=== PATIENT | male | born 1945 | race Caucasian/White ===

== ENCOUNTER → 2016-07-04 | Outpatient (REF) | payer MEDICARE ==
[2016-07-04 11:34] LABS: TRIPLE PHOSPHATE CRYSTALS MODERATE
[2016-07-04 11:42] LABS: ALBUMIN/GLOBULIN RATIO 1.05 (1.00-1.93); ALKALINE PHOSPHATASE 85 U/L (45-117); ALT/SGPT 24 U/L (12-78); ANION GAP 11 MEQ/L (8-16); AST/SGOT 21 U/L (15-37); BILIRUBIN,TOTAL 0.6 MG/DL (0.2-1.0); BLOOD UREA NITROGEN 20 MG/DL (7-18); CALCIUM LEVEL 8.8 MG/DL (8.8-10.2); CARBON DIOXIDE LEVEL 29 MEQ/L (21-32); CHLORIDE LEVEL 100 MEQ/L (98-107); CREATININE FOR GFR 1.21 MG/DL (0.70-1.30); GLOMERULAR FILTRATION RATE > 60.0 (>42); GLUCOSE, FASTING 101 MG/DL (83-110); POTASSIUM SERUM 3.7 MEQ/L (3.5-5.1); SODIUM LEVEL 140 MEQ/L (136-145); TOTAL PROTEIN 7.8 GM/DL (6.4-8.2)
== END ==
LOC: M SFHCCLAY 08:38
PROVIDERS: ATTEND Family Medicine
DX: C61 Malignant neoplasm of prostate (principal); I10 Essential (primary) hypertension; E11.9 Type 2 diabetes mellitus without complications
CPT/HCPCS: 36415; 80053; 81001; 82043; 83036; 84153; G0463

== ENCOUNTER 2016-09-06 10:14 | Day surgery (SDC) | payer MEDICARE ==
[~2016-09-06] VITALS: Ht 172.7 cm; Wt 96.9 kg
[2016-09-06] MEDS ORDERED: ASPI81TA85 PO (10:25)
[2016-09-06] MEDS ORDERED: OXYC1TAB23 (10:25)
[2016-09-06] MEDS ORDERED: LOSA50TA20 (10:25)
[2016-09-06] MEDS ORDERED: NS 500 ML IV ONE (10:45)
[2016-09-06 11:01] LABS: BASO # 0.1 K/mm3 (0.0-0.2); BASO % 1.2 % (0.0-1.0); EOS # 0.1 K/mm3 (0.0-0.50); EOS % 0.9 % (0.0-3.0); LARGE UNSTAINED CELL # 0.1 K/mm3 (0.0-0.4); LARGE UNSTAINED CELL % 1.8 % (0.0-4.0); LYMPH # 1.8 K/mm3 (1.5-4.5); LYMPH % 26.9 % (24.0-44.0); MEAN CORPUSCULAR HEMOGLOBIN 30.6 pg (27.0-33.0); MEAN CORPUSCULAR HGB CONC 34.3 g/dl (32.0-36.5); MONO # 0.4 K/mm3 (0.0-0.8); MONO % 5.4 % (0.0-5.0); NEUTROPHILS # 4.1 K/mm3 (1.8-7.7); NEUTROPHILS % 63.8 % (36.0-66.0); PLATELET COUNT, AUTOMATED 205 k/mm3 (150-450); RED CELL DISTRIBUTION WIDTH 13.7 % (11.5-14.5); WHITE BLOOD COUNT 6.4 K/mm3 (4.0-10.0)
[2016-09-06 11:26] LABS: ALBUMIN 4.4 GM/DL (3.2-5.2); ALBUMIN/GLOBULIN RATIO 1.13 (1.00-1.93); BILIRUBIN,TOTAL 0.5 MG/DL (0.2-1.0); CALCIUM LEVEL 9.5 MG/DL (8.8-10.2); CREATININE FOR GFR 1.27 MG/DL (0.70-1.30); GLOMERULAR FILTRATION RATE 59.3 (>42); POTASSIUM SERUM 3.9 MEQ/L (3.5-5.1); TOTAL PROTEIN 8.3 GM/DL (6.4-8.2)
--- NOTE | 2016-09-06 13:15 | REP ---
CT ABDOMEN AND PELVIS WITHOUT IV CONTRAST: CT abdomen and pelvis performed without oral and IV contrast, with sagittal and coronal reconstruction images performed. There are no comparison studies. Multiple bilateral pulmonary nodules are seen in the visualized lung bases. Largest on the right is in the posterior costophrenic sulcus measuring 1.7 cm in diameter. Largest on the left is 1 cm in diameter. Liver, gallbladder, spleen, adrenals, and pancreas are grossly unremarkable. Intrarenal calculus in the lower pole of the right kidney measures 9 mm in maximum diameter. There is no right hydronephrosis. There appear to be two cysts in the right kidney in the mid to upper aspect, the larger is in the mid aspect posteriorly measuring 1.6 cm in diameter. There is a large staghorn calculus in the left renal pelvis which measures approximately 5.2 cm in length and 3.1 cm in width. There is moderately severe left hydronephrosis. Moderate atherosclerotic calcifications are seen of the abdominal aorta without aneurysm. I see no adenopathy. There is no free air or free fluid. There is no bowel wall thickening. The appendix is normal. Extensive sigmoid and left colonic diverticulosis is noted without evidence of acute diverticulitis. Urinary bladder is unremarkable. There is a small umbilical hernia containing fat. There is spondylolysis of L5 with mild anterior grade 1 spondylolisthesis of L5 on S1. IMPRESSION: Multiple bilateral pulmonary nodules in the visualized lung bases. Recommend followup CT of the chest with and without contrast to further evaluate. Sigmoid diverticulosis and left colonic diverticulosis without evidence of acute diverticulitis. Intrarenal calculus right kidney. Left staghorn calculus in the renal pelvis with moderately severe left hydronephrosis. There is spondylolysis of L5. Signed by Vitor Berumen MD 09/06/2016 07:47 P
[2016-09-06] MEDS ORDERED: ASPI1TAB PO (13:27)
[2016-09-06] MEDS ORDERED: OXYC1TAB23 PO (13:27)
[2016-09-06] MEDS ORDERED: LOSA50TA20 PO (13:27)
[2016-09-06 17:35] VITALS: BP 160/85
[2016-09-06 20:13] VITALS: BP 163/97
--- NOTE | 2016-09-06 20:14 | SMCUROLCON ---
Urology Consultation General Date of Consultation 09/06/16 Reason For Consultation This patient is seen for Renal Calculi. History of Present Illness This is a 71 y/o M w/ a PMH significant for prostate cancer (Nicci 5 per pt diagnosed 6 years ago), nephrolithiasis (has passed several stones previously), and HTN, who presented to the ER today w/ gross hematuria. This started today. He denies dysuria. He denies difficulty emptying his bladder. He has noted right flank pain but denies abdominal pain. A CT A/P was obtained in the ED and was notable for a 5cm staghorn left kidney stone w/ moderate hydronephrosis and an 8mm nonobstructing right renal stone w/ no hydronephrosis. His UA was notable for several WBC. He denies fevers or chills. He denies nausea or vomiting. He has not had any surgery for kidney stones previously. He has been on active surveillance for prostate cancer, noting that his last PSA was 8 a few months ago and this was done after having a prostate exam. Past Medical History Medical History see HPI Surgical Hstory prostate biopsy Medications Current Medications Current Medications Home Med (Med Rec Complete!) ASDIRECTED XX ; Start 09/06/16 at 13:30; Stop at 13:39; Status DC Allergies Allergies: Coded Allergies: Ezetimibe (Unverified Allergy, Mild, 08/07/12) Fluvastatin (Unverified Allergy, Mild, RENAL PROBLEMS, 08/07/12) Penicillins (Unverified Allergy, Mild, RASH, 08/07/12) Penicillins Cross Reactors (Unverified Allergy, Mild, RASH, 08/07/12) Pravastatin (Unverified Allergy, Mild, 08/07/12) Rosuvastatin (Unverified Allergy, Mild, BURNING/REDNESS, 08/07/12) Review of Systems General: Reports: Normal Appetite, Denies: Fatigue, Malaise Constitutional: Denies: Fever, Chills, Sweats, Weakness Skin: Denies: Rash, Lesions, Breakdown, Nail Changes Pulmonary: Denies: Dyspnea, Cough Cardiovascular: Denies Chest Pain, Denies Palpitations Gastrointestinal: Denies: Nausea, Vomiting, Abdominal Pain Genitourinary: Reports: Hematuria, Denies: Dysuria, Frequency, Incontinence Musculoskeletal: Reports: Back Pain (notes right flank pain but denies left flank pain) Psych: Reports: Mood Normal Physical Examination General Exam: Alert, Cooperative, No Acute Distress ENT EXAM: Atraumatic Chest Exam: Clear to auscultation Heart Exam: Rate Normal, Regular Rhythm Abdomen Exam: Soft, No: Tenderness, Mass Skin Exam: Nl turgor and temperature Neuro Exam: Normal Speech Psych Exam: Mental status NL, Mood NL Vital Signs/I&O Vital Signs Date Time Temp Pulse Resp B/P (MAP) Pulse Ox O2 Delivery O2 Flow Rate FiO2 09/06/16 17:35 99.0 71 18 160/85 (110) 97 Room Air Laboratory Data 24H Labs Laboratory Tests 2 09/06/16 10:48: White Blood Count 6.4, Red Blood Count 5.25, Hemoglobin 16.1, Hematocrit 46.8, Mean Corpuscular Volume 89.0, Mean Corpuscular Hemoglobin 30.6, Mean Corpuscular Hemoglobin Concent 34.3, Red Cell Distribution Width 13.7, Platelet Count 205, Neutrophils (%) (Auto) 63.8, Lymphocytes (%) (Auto) 26.9, Monocytes ( %) (Auto) 5.4H, Eosinophils (%) (Auto) 0.9, Basophils (%) (Auto) 1.2H, Neutrophils # (Auto) 4.1, Lymphocytes # (Auto) 1.8, Monocytes # (Auto) 0.4, Eosinophils # (Auto) 0.1, Basophils # (Auto) 0.1, Large Unclassified Cells % 1.8 , Large Unclassified Cells # 0.1, Urine Appearance HAZY, Urine Color REDH, Urine pH 8.0, Urine Specific [place] 1.003, Urine Protein 2+H, Urine Glucose (UA ) NEGATIVE, Urine Ketones NEGATIVE, Urine Urobilinogen 0.2, Urine Bilirubin NEGATIVE, Urine Leukocyte Esterase 3+H, Urine Blood 3+H, Urine Nitrite NEGATIVE , Urine WBC (Auto) 70H, Urine RBC (Auto) 22H, Urine Hyaline Casts (Auto) 0, Urine Bacteria (Auto) 2+H, Urine Squamous Epithelial Cells 1, Urine Sperm (Auto ) , Anion Gap 7L, Glomerular Filtration Rate 59.3, Lactic Acid Level 1.8, Blood Urea Nitrogen 16, Creatinine 1.27, Sodium Level 140, Potassium Level 3.9, Chloride Level 102, Carbon Dioxide Level 31, Calcium Level 9.5, Aspartate Amino Transf (AST/SGOT) 21, Alanine Aminotransferase (ALT/SGPT) 25, Alkaline Phosphatase 95, Total Bilirubin 0.5, Total Protein 8.3H, Albumin 4.4, Albumin/ Globulin Ratio 1.13 CBC/BMP Laboratory Tests 09/06/16 10:48 Red Blood Count 5.25, Mean Corpuscular Volume 89.0, Mean Corpuscular Hemoglobin 30.6, Mean Corpuscular Hemoglobin Concent 34.3, Red Cell Distribution Width 13.7 , Neutrophils (%) (Auto) 63.8, Lymphocytes (%) (Auto) 26.9, Monocytes (%) (Auto ) 5.4 H, Eosinophils (%) (Auto) 0.9, Basophils (%) (Auto) 1.2 H, Neutrophils # ( Auto) 4.1, Lymphocytes # (Auto) 1.8, Monocytes # (Auto) 0.4, Eosinophils # (Auto ) 0.1, Basophils # (Auto) 0.1, Calcium Level 9.5, Aspartate Amino Transf (AST/ SGOT) 21, Alanine Aminotransferase (ALT/SGPT) 25, Alkaline Phosphatase 95, Total Bilirubin 0.5, Total Protein 8.3 H, Albumin 4.4 Microbiology Microbiology 09/06/16 Blood Culture, Received Pending 09/06/16 Urine Culture, Received Pending Assessment This is a 71 M w/ a 5cm left staghorn stone w/ moderate hydro and a likely UTI based on UA. I recommended that we take him to the OR for cystoscopy and left ureteral stent placement today to decompress his kidney. Plan - after a discussion of the risks and benefits, informed consent was signed for cystoscopy, left ureteral stent placement - he should be able to go home after surgery on antibiotics for several days and will ultimately need follow up for a left percutaneous nephrolithotomy - 500mg levaquin IV airways control specialist to OR - NPO until surgery MICHAEL DODSON MD September 06, 2016 20:14
[2016-09-06] MEDS ORDERED: LIDOCAINE 2% 5ML JELLY UROJET As Ordered ONE (20:35)
[2016-09-06] MEDS ORDERED: CONRAY-60 60% 50ML VIAL (Q9961) As Ordered ONE (20:35)
[2016-09-06] MEDS ORDERED: LevoFLOXacin(LEVAQUIN)500 MG/100 ML BAG (J1956) As Ordered ONE (20:47)
[2016-09-06] MEDS ORDERED: LevoFLOXacin IV 500 MG in APPROPRIATE DILUENT 1 EA IV ONE (21:00)
[2016-09-06] MEDS ORDERED: LIDOCAINE 2% INJ 100 MG/5 ML SDV (FOR ANES.) As Ordered ONE (21:06)
[2016-09-06] MEDS ORDERED: ONDANSETRON 4MG/2ML VIAL (J2405) As Ordered ONE (21:06)
[2016-09-06] MEDS ORDERED: MIDAZOLAM INJ 2 MG/2 ML VIAL (J2250) As Ordered ONE (21:06)
[2016-09-06] MEDS ORDERED: fentaNYL 250 MCG/5 ML INJECTION (J3010) As Ordered ONE (21:06)
[2016-09-06] MEDS ORDERED: PROPOFOL 200 MG/20 ML VIAL As Ordered ONE ×2 (21:06→21:36)
[2016-09-06] MEDS ORDERED: SEVOFLURANE INHAL SOLN 250 ML BTL As Ordered ONE (21:13)
[2016-09-06] MEDS ORDERED: ACETAMINOPHEN TAB 650MG DOSE (2X325MG) PO PRN (22:30)
[2016-09-06] MEDS ORDERED: PERCOCET 5MG/325MG TAB PO PRN (22:30)
[2016-09-06] MEDS ORDERED: LR 1,000 ML IV SCH (22:30)
[2016-09-06] MEDS ORDERED: METOCLOPRAMIDE INJ 10MG/2ML VIAL (J2765) IV PRN (22:30)
[2016-09-06] MEDS ORDERED: fentaNYL 100 MCG/2 ML INJECTION (J3010) IV PRN (22:30)
[2016-09-06] MEDS ORDERED: ONDANSETRON 4MG/2ML VIAL (J2405) IV PRN (22:30)
[2016-09-06 23:05] VITALS: BP 138/86
[2016-09-06 23:35] VITALS: BP 144/88
[2016-09-07 00:02] VITALS: BP 140/82
--- NOTE | 2016-09-07 08:37 | RO ---
DATE OF PROCEDURE: 09/06/2016 PREPROCEDURE DIAGNOSES: Obstructing left kidney stone and gross hematuria. POSTPROCEDURE DIAGNOSES: Obstructing left kidney stone and gross hematuria. PROCEDURE: Cystoscopy, left ureteroscopy, left retrograde pyelogram with intraoperative interpretation of images, left ureteral stent placement, fulguration of prostatic urethral bleeding. SURGEON: Alex Awan MD MANAGER MARKET: None. ANESTHESIA: MAC. OPERATIVE INDICATIONS: This is a 71-year-old male who presented to the emergency room earlier today with gross hematuria. While in the emergency room, a CAT scan was obtained and was notable for an obstructing 5 cm left Staghorn calculus. His urinalysis was notable for 70 white blood cells, greatly concerning for a possible urinary tract infection. Given the combination of possible urinary tract infection and obstructing stone, the recommendation was to bring him to the operating room today for a left stent placement to decompress the left kidney. DESCRIPTION OF PROCEDURE: The patient was brought to the operating room where MAC anesthesia was administered. Prophylactic antibiotics were infused. He was then placed in the dorsal lithotomy position and prepped and draped in the usual sterile fashion. A rigid cystoscope was inserted into the ureteral meatus and advanced to the bladder. Of note, once in the bladder it was very hard to see anything as he is having a moderate amount of hematuria. The bleeding appeared to be coming from his prostate, which appeared enlarged and very vascular. At this point, I then fulgurated and cauterized the prostatic urethra using a Bugbee electrode and kept doing this until the bleeding stopped. I then examined the bladder thoroughly and I did not see any abnormal masses within the bladder. I then located the left ureteral orifice and it was orthotopic. I tried cannulating the ureteral orifice with a wire and it would not go into the ureteral orifice and appeared to be somewhat stenotic. I therefore went into the ureteral orifice with a short, semi-rigid ureteroscope. I was ultimately able to get into the ureteral orifice. I then advanced the wire up to the left collecting system. After the wire was advanced up in the left collecting system , an open ended ureteral catheter was advanced over the wire up into the left kidney. A retrograde pyelogram was performed and was notable for moderate hydronephrosis. There was no extravasation. At this point, the wire was then advanced back up into the open ended ureteral catheter and the open ended ureteral catheter was then removed leaving the wire in place. I then utilized the wire to advance a #7-Japanese x 22-32 cm JJ ureteral stent up into the left collecting system. The wire was then removed and there were adequate curls of the stent in the left kidney and in the bladder. The bladder was then emptied of all fluid and this marked conclusion of the procedure. The patient was then taken out of the dorsal lithotomy position, awakened from anesthesia and transported to the recovery room in stable condition. ESTIMATED BLOOD LOSS: 10 mL. COMPLICATIONS: None. SPECIMENS: None. PLAN: The patient is going to be discharged home tonight. He will followup in the clinic over the next week or two to discuss a percutaneous nephrolithotomy to treat his left Staghorn stone. Of note, he also has a 9 mm right sided kidney stone and that will be treated at some point in the future as well. SRI
--- NOTE | 2016-09-07 09:06 | REP ---
C-ARM VIEWS DURING LEFT URETERAL STENT PLACEMENT: Four C-arm views are performed. A wire was placed into the left ureter. A small amount of contrast is seen in the left pelvicaliceal system. A left ureteral stent is visualized on the final image with the proximal end coiled in the region of the left renal collecting system and the distal end coiled in the region of the urinary bladder. 32 seconds fluoroscopy time utilized. Signed by Vitor Berumen MD 09/07/2016 04:43 P
== END 2016-09-07 00:05 | disposition home or self-care (01) ==
LOC: M ED 10:44 → M SDC 12:45 → M ED INP 12:45 → UNDOADMIN 12:45 → M MS5PR 17:35 → M SDC 09-07 00:05
PROVIDERS: ATTEND Urology
DX: N20.0 Calculus of kidney (principal); R31.0 Gross hematuria; I20.9 Angina pectoris, unspecified; I10 Essential (primary) hypertension; E66.9 Obesity, unspecified; R91.8 Other nonspecific abnormal finding of lung field; C61 Malignant neoplasm of prostate; Z88.0 Allergy status to penicillin; Z88.8 Allergy status to other drugs, medicaments and biological substances; Z79.899 Other long term (current) drug therapy
CPT/HCPCS: 52214; 52332; 74176; 74420; 80053; 81001; 83605; 85025; 87040; 87086; 99284; C1726; C1758; C2617; J1956; J2250; J2405; J3010; Q9961

== ENCOUNTER → 2016-09-23 | Outpatient (CLI) | payer MEDICARE ==
[~2016-09-23] MED LIST: ASPI1TAB PO; ASPI81TA85 PO; FLOM5CAP PO; ISOVUE-370 76% 100ML VIAL (Q9967) As Ordered ONE; LOSA50TA20; LOSA50TA20 PO; OXYC1TAB23; OXYC1TAB23 PO
--- NOTE | 2016-09-23 12:33 | REP ---
Clinical: Pulmonary nodule. Technique: Axial contrast enhanced images from the thoracic inlet to the upper abdomen using 100 ml Isovue 370 intravenous contrast material with multiplanar re-formations. Comparison: CT of the abdomen dated 09/06/2016. Note: Although the patient gives no history of prior carcinoma, a previous bone scan and pelvic CT dated 02/13/2007 give clinical indication as prostate cancer. Findings: Innumerable bilateral pulmonary nodules and mass lesions are appreciated measuring up to 2.9 cm in the right middle lobe and 2.6 cm in the right upper lobe compatible with pulmonary metastatic disease. No significant axillary, hilar, or mediastinal adenopathy is appreciated. No pleural effusion/reaction. Tracheobronchial tree is patent. Mediastinum demonstrates atherosclerotic changes to the thoracic aorta and coronary arteries along with mild cardiomegaly. No pericardial effusion. Surrounding musculoskeletal structures demonstrate age-related degenerative changes. However, very subtle vague sclerotic changes may reflect associated bony metastatic disease given the patient's history of prostate cancer. Limited evaluation of the upper abdomen demonstrates staghorn calculus in the left kidney with left ureteral stent and associated severe hydronephrosis and renal cortical thinning. The right kidney demonstrates few cysts as well as 9 mm nonobstructing calculus and no hydronephrosis. Bilateral adrenal glands are normal. Impression: 1. Innumerable bilateral pulmonary mass lesions compatible with metastatic disease measuring up to 2.9 cm in the right middle lobe and 2.6 cm in the right upper lobe. No significant adenopathy noted. Mild cardiomegaly identified. 2. Limited evaluation of the upper abdomen demonstrates renal changes including left staghorn calculus, left ureteral stent, and hydronephrosis as well as nonobstructing 9 mm right renal calculus. 3. Cannot exclude very subtle osseous sclerotic metastatic foci. Signed by Vidal Smith MD 09/23/2016 12:24 P
== END ==
LOC: M RAD 10:57
PROVIDERS: ATTEND Nurse Practitioner Family
DX: Z01.818 Encounter for other preprocedural examination (principal); R91.1 Solitary pulmonary nodule; N20.0 Calculus of kidney; Z96.89 Presence of other specified functional implants
CPT/HCPCS: 71260; Q9967

== ENCOUNTER 2016-09-25 07:44 | Inpatient (IN) | payer MEDICARE ==
[~2016-09-25] VITALS: Ht 172.7 cm; Wt 98.6 kg
[~2016-09-25 07:44] MED LIST changes: -FLOM5CAP PO; -ISOVUE-370 76% 100ML VIAL (Q9967) As Ordered ONE
[2016-09-25] MEDS ORDERED: ONDANSETRON 4MG/2ML VIAL (J2405) IV ONE ×2 (08:00→09:15)
[2016-09-25] MEDS ORDERED: FLOM5CAP PO (08:03)
[2016-09-25 08:34] LABS: BASO # 0.1 K/mm3 (0.0-0.2); BASO % 0.7 % (0.0-1.0); EOS # 0.1 K/mm3 (0.0-0.50); EOS % 0.8 % (0.0-3.0); LARGE UNSTAINED CELL # 0.1 K/mm3 (0.0-0.4); LARGE UNSTAINED CELL % 0.7 % (0.0-4.0); LYMPH # 1.1 K/mm3 (1.5-4.5); LYMPH % 9.8 % (24.0-44.0); MEAN CORPUSCULAR HEMOGLOBIN 29.6 pg (27.0-33.0); MEAN CORPUSCULAR HGB CONC 33.3 g/dl (32.0-36.5); MEAN CORPUSCULAR VOLUME 89.1 fl (80.0-96.0); MONO # 0.4 K/mm3 (0.0-0.8); NEUTROPHILS # 8.9 K/mm3 (1.8-7.7); PLATELET COUNT, AUTOMATED 226 k/mm3 (150-450); RED CELL DISTRIBUTION WIDTH 13.4 % (11.5-14.5); WHITE BLOOD COUNT 10.5 K/mm3 (4.0-10.0)
[2016-09-25 08:38] LABS: CALCIUM LEVEL 8.6 MG/DL (8.8-10.2); CREATININE FOR GFR 1.37 MG/DL (0.70-1.30); GLOMERULAR FILTRATION RATE 54.4 (>42); POTASSIUM SERUM 3.7 MEQ/L (3.5-5.1)
[2016-09-25] MEDS ORDERED: MORPHINE 2 MG/ML 1ML SYRINGE IV ONE (09:15)
--- NOTE | 2016-09-25 09:50 | REP ---
Clinical: Hematuria. Comparison: 09/06/2016. Findings: A large staghorn calculus is again identified in the left renal pelvis and a subsequently placed ureteral stent extends from the kidney to the ureter. The left kidney demonstrates grade III hydroureteronephrosis which is mildly improved compared to prior examination. There is evidence for hemorrhagic debris within the left renal pelvis as well as filling the bladder. The right kidney demonstrates 9 mm nonobstructing calculus and 1.5 cm hypodensity likely representing cyst. Liver, spleen, pancreas, gallbladder, and bilateral adrenal glands are normal for noncontrast evaluation. The enteric system is without obstruction or acute inflammatory process. Colonic diverticulosis noted without acute diverticulitis. Pelvis again demonstrates hemorrhagic debris filling the bladder and Ivy catheter in satisfactory position. Prostate gland is enlarged with mass effect on the base of the bladder. Fat containing left inguinal hernia noted. No ascites. No free air. No obvious adenopathy. Atherosclerotic changes of the aorta and vasculature noted without aneurysm. 2 cm fat containing periumbilical hernia identified. Surrounding musculoskeletal structures demonstrate age-related degenerative changes. Lung bases demonstrate noncalcified pulmonary nodules measuring up to 12 mm and correlation with recent chest CT is required. Impression: 1. Hemorrhagic debris extends from the left renal pelvis into the bladder. Previously identified staghorn calculus in the left kidney is unchanged along with grade III hydronephrosis which is minimally improved secondary to ureteral stent placement. 2. 9 mm nonobstructing calculus in the right kidney along with 1.5 cm hypodensity likely representing cyst. 3. Colonic diverticulosis without acute diverticulitis. 4. Further chronic changes as described above. Signed by Vidal Smith MD 09/25/2016 09:41 A
[2016-09-25] MEDS: NS 1,000 ML IV SCH ×2 (10:38→20:30)
[2016-09-25] MEDS ORDERED: PERCOCET 5MG/325MG TAB PO ONE ×2 (11:30→16:45)
[2016-09-25] MEDS ORDERED: ACETAMINOPHEN TAB 650MG DOSE (2X325MG) PO PRN (17:15)
[2016-09-25] MEDS ORDERED: ONDANSETRON 4MG/2ML VIAL (J2405) IV PRN (17:15)
[2016-09-25] MEDS: PERCOCET 5MG/325MG TAB PO PRN (20:44)
[2016-09-25 20:45] LABS: MAGNESIUM LEVEL 1.9 MG/DL (1.8-2.4)
[2016-09-25 20:54] VITALS: BP 185/86
[2016-09-25 21:27] LABS: INR 1.05
[2016-09-26] MEDS: PERCOCET 5MG/325MG TAB PO PRN ×3 (00:37→11:03)
--- NOTE | 2016-09-26 05:42 | CR ---
DATE OF CONSULTATION: 09/25/2016 CHIEF COMPLAINT: Gross hematuria and clot retention. HISTORY OF PRESENT ILLNESS: This is a very pleasant 71-year-old gentleman who is under the care of Dr. Awan who is following him for a left renal stone that he has been bleeding from and has a stent place. Also a history of prostate cancer that had been quiescent but is in the process of being worked up. Most recent prostate specific antigen (PSA) was eight, but that was up from one. He came in specifically tonight because of clot retention. He has been bleeding on-and-off for some time. It was noted that Dr. Awan required fulguration of his prostate, but the patient said he was told that the bleeding is coming from his kidney. A three-way catheter was placed and he was irrigated with nine bags of fluid, but it still would not clear, so the decision was made to admit him on continuous bladder irrigation (CBI) and urology was consulted. PAST MEDICAL HISTORY: Significant for a history of prostate cancer, he said diagnosed 10 years ago. No treatment, benign prostatic hypertrophy (BPH), staghorn calculus on the left, hydronephrosis, recurrent gross hematuria status post stent, newly-diagnosed pulmonary nodules of uncertain etiology. PAST SURGICAL HISTORY: Includes ureteral stent. No other surgeries in his past. ALLERGIES: 1. ATENOLOL. 2. EZETIMIBE. 3. FLUVASTATIN. 4. PENICILLINS. 5. PENICILLIN CROSS REACTORS. 6. PRAVASTATIN. 7. ROSUVASTATIN. MEDICATIONS: Tylenol, Percocet, Zofran, losartan and Flomax. SOCIAL HISTORY: He denies ever having any tobacco. He only rarely drinks an alcoholic beverage and denies any drugs. FAMILY HISTORY: Noncontributory. REVIEW OF SYSTEMS: Positive for the gross hematuria, clots, and clot urinary retention. He denies any chest pain or shortness of breath, any hematochezia or hemoptysis, bloody emesis, headache, seizure, stroke, numbness or tingling of the extremities, nausea, vomiting, diarrhea, constipation, fever or chills. PHYSICAL EXAMINATION: GENERAL: On exam, he is a very pleasant 71-year-old gentleman who is well developed, well nourished. He is in no acute distress. He is alert and oriented. HEENT: Normocephalic, atraumatic. NECK: Supple without adenopathy or thyromegaly. CARDIOVASCULAR: Regular rate and rhythm without rubs, gallops or murmurs. RESPIRATORY: Lung musa are clear to auscultation bilaterally. ABDOMEN: Protuberant but soft. No evidence of hepatosplenomegaly, palpable masses or costovertebral angle tenderness. EXTREMITIES: Show some mild 1+ edema. No clubbing was appreciated. GENITOURINARY (): Exam reveals normal male genitalia and bilateral descended testicles with indwelling Ivy catheter, initially with very dark purple urine in the tubing while CBI was off. Cleared to a pale pink after CBI was turned on. LABORATORY DATA: White blood cell count is 10.5, hemoglobin and hematocrit are 14.2 and 42.6. Creatinine is 1.37. IMAGING: A CT of the abdomen and pelvis has been performed. Images and read are not available. He had a chest CT yesterday which showed multiple pulmonary nodules. Hospitalist is going to investigate these. ASSESSMENT: 1. Gross hematuria with clot retention. 2. Left staghorn calculus status post stent. 3. Prostate cancer. 4. Multiple pulmonary nodules. PLAN: He has been admitted by the hospitalist primarily to help manage his medical conditions while we manage the hematuria. He will need to stay in the hospital until we can get him off the CBI. This may be as soon as tomorrow. However, he is going to need further workup for both the staghorn calculus and his prostate from a urologic standpoint, which Dr. Awan is already in the process of doing, but will also need some evaluation for the pulmonary nodules as well. Dr. Awan or Dr. Lowry will see him in the morning. Thank you very much for involving me in the care of this kind patient.
[2016-09-26 06:00] VITALS: BP 187/87
[2016-09-26 06:43] LABS: BASO % 0.5 % (0.0-1.0); EOS # 0.2 K/mm3 (0.0-0.50); EOS % 2.3 % (0.0-3.0); LARGE UNSTAINED CELL # 0.1 K/mm3 (0.0-0.4); LYMPH # 1.5 K/mm3 (1.5-4.5); LYMPH % 14.3 % (24.0-44.0); MEAN CORPUSCULAR HEMOGLOBIN 29.5 pg (27.0-33.0); MEAN CORPUSCULAR HGB CONC 32.9 g/dl (32.0-36.5); MEAN CORPUSCULAR VOLUME 89.8 fl (80.0-96.0); MONO # 0.8 K/mm3 (0.0-0.8); MONO % 7.8 % (0.0-5.0); NEUTROPHILS # 7.4 K/mm3 (1.8-7.7); NEUTROPHILS % 74.1 % (36.0-66.0); PLATELET COUNT, AUTOMATED 197 k/mm3 (150-450); RED CELL DISTRIBUTION WIDTH 13.5 % (11.5-14.5); WHITE BLOOD COUNT 9.9 K/mm3 (4.0-10.0)
[2016-09-26 07:10] LABS: ALBUMIN/GLOBULIN RATIO 0.83 (1.00-1.93); ALKALINE PHOSPHATASE 75 U/L (45-117); ALT/SGPT 18 U/L (12-78); ANION GAP 3 MEQ/L (8-16); AST/SGOT 17 U/L (15-37); BILIRUBIN,TOTAL 0.6 MG/DL (0.2-1.0); BLOOD UREA NITROGEN 15 MG/DL (7-18); CALCIUM LEVEL 8.1 MG/DL (8.8-10.2); CARBON DIOXIDE LEVEL 32 MEQ/L (21-32); CHLORIDE LEVEL 103 MEQ/L (98-107); CREATININE FOR GFR 1.12 MG/DL (0.70-1.30); GLOMERULAR FILTRATION RATE > 60.0 (>42); GLUCOSE, FASTING 114 MG/DL (83-110); POTASSIUM SERUM 4.6 MEQ/L (3.5-5.1); SODIUM LEVEL 138 MEQ/L (136-145); TOTAL PROTEIN 6.6 GM/DL (6.4-8.2)
--- NOTE | 2016-09-26 10:26 | IPNPDOC ---
Subjective Date Seen The patient was seen on 09/26/16. Subjective Chief Complaint/HPI The patient is a 71-year-old male admitted with a reason for visit of Hematuria , Gross. Events since last encounter Pt feels the bleeding has slowed since admission, but he cont to have dark red urine. C/o kidney pain on both sides of his back. We talked about his CT chest results today and obtaining a bx, he initially refused as he wants to figure out why he has is bleeding but the more we talked about it he agreed to proceed with bx during admission. General: Denies: Fatigue Constitutional: Denies: Chills, Fever ENT: Denies: Head Aches Pulmonary: Denies: Dyspnea, Cough Cardiovascular: Denies: Chest Pain, Palpitations Gastrointestinal: Denies: Nausea, Vomiting, Diarrhea Genitourinary: Reports: Hematuria Neurological: Reports: Weakness Psych: Reports: Mood Normal Objective Physical Examination General Exam: Positive: Alert, No Acute Distress ENT Exam: Positive: Mucous membr. moist/pink Neck Exam: Positive: Supple Chest Exam: Positive: Clear to auscultation, Normal air movement Heart Exam: Positive: Rate Normal, Normal S1, Normal S2 Abdomen Exam: Positive: Normal bowel sounds, Soft, Negative: Tenderness Extremity Exam: Negative: Edema Psych Exam: Positive: Mental status NL, Anxiety, Oriented x 3 Assessment /Plan Problems (1) Hematuria, gross Status: Acute Response to Treatment: Uncontrolled Discussed With: Director Gift, Patient Problem Specific Plan: Consult Specialist, Monitor Clinically, Repeat Labs Problem Text: Pt has been seen by Uro, Dr Duncan, she plans for Dr Awan to see the pt this morning. He cont to have significant hematuria, with a decline of 3 grams in his Hgb since 09/06/16 (1 gram since admission). Uro had been planning for PCNL as outpt with pre-op testing started. + 1.5 cm L renal pelvis staghorn calculus, + stent for hydronephrosis, 9 mm non obstruction L stone, hemorrhagic debris noted on CT A & P (2) Pulmonary nodules/lesions, multiple Status: Acute Response to Treatment: Stable Discussed With: Patient Problem Specific Plan: Consult Specialist, Monitor Clinically Problem Text: I had a lengthy discussion with the pt on his findings. He agreed to IR consult for biopsy. He is aware that this might not happen today and that the results will take 3-5 days to return. He continues to be quite shocked with the new of mtp pulm nodules with 2 that are nearly 3 cm. (3) Hydronephrosis Status: Acute Problem Text: see above. (4) Ureterolithiasis Status: Acute Problem Text: See above. (5) Staghorn calculus Status: Acute Problem Text: See above. (6) Prostate cancer Status: Chronic Response to Treatment: Stable Problem Specific Plan: Monitor Clinically Problem Text: Pt follows with Uro, his PSA has increased from 1 to 8 - 12.9 per review of his records. He has recently established with Uro in [place] who have begun to follow this. Plan/VTE VTE Prophylaxis Ordered?: No VTE Exclusion Pharmacological: Active Bleeding Plan/Urinary Catheter Reason for insertion/continuin: Other-document below Plan Attending note: I saw and evaluated the patient, and agree with the plan of care as discussed and documented by Isrrael Tinsley. We will discuss CT findings with Dr. Woo, to determine if patient may benefit from bronchoscopy for evaluation of lung lesions. Ankit Joiner MD VS, I&O, 24H, [facility] Vital Signs/I&O Vital Signs Date Time Temp Pulse Resp B/P (MAP) Pulse Ox O2 Delivery O2 Flow Rate FiO2 09/26/16 06:18 18 09/26/16 06:00 99.0 63 187/87 (120) 97 Room Air I&O- Last 24 Hours up to 6 AM 09/26/16 06:00 Intake Total 1480 ml Output Total 3045 ml Balance -1565 ml Laboratory Data 24H LABS Laboratory Tests 2 09/25/16 21:07: Prothrombin Time 13.8, Prothromb Time International Ratio 1.05, Activated Partial Thromboplast Time 25.8L 09/26/16 06:30: White Blood Count 9.9, Red Blood Count 4.44, Hemoglobin 13.1L, Hematocrit 39.9L , Mean Corpuscular Volume 89.8, Mean Corpuscular Hemoglobin 29.5, Mean Corpuscular Hemoglobin Concent 32.9, Red Cell Distribution Width 13.5, Platelet Count 197, Neutrophils (%) (Auto) 74.1H, Lymphocytes (%) (Auto) 14.3L, Monocytes (%) (Auto) 7.8H, Eosinophils (%) (Auto) 2.3, Basophils (%) (Auto) 0.5 , Neutrophils # (Auto) 7.4, Lymphocytes # (Auto) 1.5, Monocytes # (Auto) 0.8, Eosinophils # (Auto) 0.2, Basophils # (Auto) 0.0, Large Unclassified Cells % 1.0 , Large Unclassified Cells # 0.1, Anion Gap 3L, Glomerular Filtration Rate > 60.0, Blood Urea Nitrogen 15, Creatinine 1.12, Sodium Level 138, Potassium Level 4.6#, Chloride Level 103, Carbon Dioxide Level 32, Calcium Level 8.1L, Aspartate Amino Transf (AST/SGOT) 17, Alanine Aminotransferase (ALT/SGPT) 18, Alkaline Phosphatase 75, Total Bilirubin 0.6, Total Protein 6.6, Albumin 3.0L, Albumin/Globulin Ratio 0.83L CBC/BMP Laboratory Tests 09/26/16 06:30 Red Blood Count 4.44, Mean Corpuscular Volume 89.8, Mean Corpuscular Hemoglobin 29.5, Mean Corpuscular Hemoglobin Concent 32.9, Red Cell Distribution Width 13.5 , Neutrophils (%) (Auto) 74.1 H, Lymphocytes (%) (Auto) 14.3 L, Monocytes (%) ( Auto) 7.8 H, Eosinophils (%) (Auto) 2.3, Basophils (%) (Auto) 0.5, Neutrophils # (Auto) 7.4, Lymphocytes # (Auto) 1.5, Monocytes # (Auto) 0.8, Eosinophils # ( Auto) 0.2, Basophils # (Auto) 0.0, Calcium Level 8.1 L, Aspartate Amino Transf ( AST/SGOT) 17, Alanine Aminotransferase (ALT/SGPT) 18, Alkaline Phosphatase 75, Total Bilirubin 0.6, Total Protein 6.6, Albumin 3.0 L Microbiology Microbiology 09/25/16 Blood Culture, Received Pending 09/25/16 Urine Culture, Received Pending ISRRAEL TINSLEY PA-C September 26, 2016 10:26 ANKIT JOINER MD September 26, 2016 17:15
[2016-09-26] MEDS: NS 1,000 ML IV SCH ×2 (11:01→16:30)
[2016-09-26] MEDS: TAMSULOSIN 0.4 MG CAP PO SCH (12:12)
[2016-09-26] MEDS: LOSARTAN 50 MG TAB PO SCH (12:12)
[2016-09-26 14:12] VITALS: BP 154/85
[2016-09-26 22:00] VITALS: BP 171/81
[2016-09-26] MEDS ORDERED: VANCOMYCIN HCL 1,000 MG, VIAL MATE ADAPTER 1 EACH in D5W 250 ML IV ONE (23:00)
--- NOTE | 2016-09-26 23:05 | PHACANCOPD ---
PHARMACY VANCOMYCIN DOSING Pt Demographics Demographics Patient Age:71 , Weight:98.500 , Gender: male Adjusted Body Weight Date: 09/26/16, Adjusted Body Weight: Kg Events Past 24 Hours Events Past 24 Hours: NO: Dialysis, Diuretic Therapy, Change in CrCl, Fever, Elevation in WBC, Pending Diagnostics, Pending Procedures, Other Vancomycin Vancomycin Target Ranges: 10-20 mcg/ml Vancomycin Load Y/N: Yes Load Dose Date Time Vancomycin Load Dose: 2000MG Date: 09-27 Time: 0000 Vancomycin Dose Date: 09/26/16. Current Vancomycin Dose: [1000MG Q8H] Intermittent Dosing?: No Labs Labs Item Value Date Time White Blood Count 9.9 K/mm3 09/26/16 0630 Creatinine 1.12 MG/DL 09/26/16 0630 Creatinine 1.37 MG/DL H 09/25/16 0815 Vital Signs Label Value Date Time Patient Temperature 100.2 degrees F 09/26/16 2200 Temperature Source Temporal 09/26/16 2200 Micro Microbiology 09/26/16 Blood Culture, Received Pending 09/26/16 Blood Culture, Received Pending 09/25/16 Blood Culture - Preliminary, Resulted 09/25/16 Urine Culture, Received Pending Creatinine Clearance Date:09/26/16. Creatinine Clearance: [58]. Pending Labs Trough 05-23 @2300 Assessment and Plan Maintaining Current Dose?: Yes Reason for dose change: No Dose Change Pharmacist Note Pharmacist Note Date: 09/26/16. Pharmacist note:dosed at 1000mg q8h with a trough ordered for 05- 23 @2300. Will continue to monitor and make adjustments as needed. SARAH KIM PHARMACY September 26, 2016 23:05
[2016-09-27] MEDS ORDERED: VANCOMYCIN HCL 500 MG in D5W MINI-BAG PLUS 100 ML IV ONE ×2
[2016-09-27] MEDS: NS 1,000 ML IV SCH ×2 (02:30→15:53)
[2016-09-27 06:00] VITALS: BP 144/74
[2016-09-27] MEDS: PERCOCET 5MG/325MG TAB PO PRN ×3 (06:53→21:50)
[2016-09-27 07:29] LABS: MEAN CORPUSCULAR HEMOGLOBIN 30.5 pg (27.0-33.0); MEAN CORPUSCULAR VOLUME 89.7 fl (80.0-96.0); RED CELL DISTRIBUTION WIDTH 13.5 % (11.5-14.5); WHITE BLOOD COUNT 9.8 K/mm3 (4.0-10.0)
[2016-09-27 07:41] LABS: ALBUMIN 2.9 GM/DL (3.2-5.2); ALBUMIN/GLOBULIN RATIO 0.73 (1.00-1.93); ALKALINE PHOSPHATASE 73 U/L (45-117); ALT/SGPT 16 U/L (12-78); ANION GAP 5 MEQ/L (8-16); AST/SGOT 13 U/L (15-37); BILIRUBIN,TOTAL 0.8 MG/DL (0.2-1.0); BLOOD UREA NITROGEN 8 MG/DL (7-18); CALCIUM LEVEL 8.5 MG/DL (8.8-10.2); CARBON DIOXIDE LEVEL 29 MEQ/L (21-32); CHLORIDE LEVEL 103 MEQ/L (98-107); CREATININE FOR GFR 1.04 MG/DL (0.70-1.30); GLOMERULAR FILTRATION RATE > 60.0 (>42); GLUCOSE, FASTING 117 MG/DL (83-110); POTASSIUM SERUM 4.5 MEQ/L (3.5-5.1); SODIUM LEVEL 137 MEQ/L (136-145); TOTAL PROTEIN 6.9 GM/DL (6.4-8.2)
[2016-09-27 08:00] VITALS: BP 149/71
[2016-09-27] MEDS: TAMSULOSIN 0.4 MG CAP PO SCH (08:43)
[2016-09-27] MEDS: LOSARTAN 50 MG TAB PO SCH (08:43)
[2016-09-27] MEDS: VANCOMYCIN HCL 1,000 MG, VIAL MATE ADAPTER 1 EACH in D5W 250 ML IV SCH ×2 (08:43→15:51)
[2016-09-27 09:49] LABS: CARCINOEMBRYONIC ANTIGEN 3.1 NG/ML (<2.5)
--- NOTE | 2016-09-27 12:28 | IPNPDOC ---
Subjective Date Seen The patient was seen on 09/27/16. Subjective Chief Complaint/HPI The patient is a 71-year-old male admitted with a reason for visit of Hematuria , Gross. Events since last encounter Still some suprapubic tenderness. Ivy had to be replaced overnight due to obstruction of catheter. Otherwise feels well. Constitutional: Denies: Chills Pulmonary: Denies: Dyspnea, Cough Cardiovascular: Denies: Chest Pain, Palpitations, Orthopnea Gastrointestinal: Reports: Abdominal Pain (mild suprapubic), Denies: Nausea, Vomiting, Diarrhea, Constipation Objective Physical Examination General Exam: Positive: Alert, No Acute Distress ENT Exam: Positive: Mucous membr. moist/pink Neck Exam: Positive: Supple Chest Exam: Positive: Clear to auscultation, Normal air movement Heart Exam: Positive: Rate Normal, Normal S1, Normal S2 Abdomen Exam: Positive: Normal bowel sounds, Soft, Tenderness (tender suprapubic region without guard or rebound) Extremity Exam: Negative: Edema Psych Exam: Positive: Mental status NL, Anxiety, Oriented x 3 Assessment /Plan Problems (1) Hematuria, gross Status: Acute Response to Treatment: Uncontrolled Discussed With: Pharmacist Per Diem, Patient Problem Specific Plan: Consult Specialist, Monitor Clinically, Repeat Labs Problem Text: Per Urology - hematuria improving with flushes and abx Pt has been seen by Uro, Dr Duncan, she plans for Dr Awan to see the pt this morning. He cont to have significant hematuria, with a decline of 3 grams in his Hgb since 09/06/16 (1 gram since admission). Uro had been planning for PCNL as outpt with pre-op testing started. + 1.5 cm L renal pelvis staghorn calculus, + stent for hydronephrosis, 9 mm non obstruction L stone, hemorrhagic debris noted on CT A & P (2) UTI (urinary tract infection) Status: Acute Problem Text: U/C grew staph epi b/C x 1 preliminary with gram + cocci in clusters Started on Vanco Iv today F/U B/C pending (3) Pulmonary nodules/lesions, multiple Status: Acute Response to Treatment: Stable Discussed With: Patient Problem Specific Plan: Consult Specialist, Monitor Clinically Problem Text: Informal discussion with Dr. Woo who reviewed [facility] chest CT. He feels the nodules are suspicious for hematogenous metastatic spread possibly from prostate cancer. He recommends outpatient evaluation with either biopsy with IR or bronch, but most likely Ct guided biopsy with IR. JFW: as above--outpt w/u planned (4) Hydronephrosis Status: Acute Problem Text: see above. renal function improved to normal. (5) Ureterolithiasis Status: Acute Problem Text: See above. (6) Staghorn calculus Status: Acute Problem Text: See above. (7) Prostate cancer Status: Chronic Response to Treatment: Stable Problem Specific Plan: Monitor Clinically Problem Text: Pt follows with Uro, his PSA has increased from 1 to 8 - 12.9 per review of his records. He has recently established with Uro in [place] who have begun to follow this. (8) HTN (hypertension) Status: Chronic Response to Treatment: Stable Problem Text: continue Cozaar Plan/VTE VTE Prophylaxis Ordered?: No VTE Exclusion Pharmacological: Active Bleeding Plan/Urinary Catheter Reason for insertion/continuin: Other-document below VS, I&O, 24H, Fishbone Vital Signs/I&O Vital Signs Date Time Temp Pulse Resp B/P (MAP) Pulse Ox O2 Delivery O2 Flow Rate FiO2 09/27/16 08:43 149/71 09/27/16 08:00 99.0 66 18 98 Room Air I&O- Last 24 Hours up to 6 AM 09/27/16 06:00 Intake Total 2420 ml Output Total 2900 ml Balance -480 ml Laboratory Data 24H LABS Laboratory Tests 2 09/27/16 07:07: Anion Gap 5L, Glomerular Filtration Rate > 60.0, Blood Urea Nitrogen 8, Creatinine 1.04, Sodium Level 137, Potassium Level 4.5, Chloride Level 103, Carbon Dioxide Level 29, Calcium Level 8.5L, Aspartate Amino Transf (AST/SGOT) 13L, Alanine Aminotransferase (ALT/SGPT) 16, Alkaline Phosphatase 73, Total Bilirubin 0.8, Total Protein 6.9, Albumin 2.9L, Albumin/Globulin Ratio 0.73L CBC/BMP Laboratory Tests 09/27/16 07:07 Red Blood Count 4.28 L, Mean Corpuscular Volume 89.7, Mean Corpuscular Hemoglobin 30.5, Mean Corpuscular Hemoglobin Concent 34.0, Red Cell Distribution Width 13.5, Calcium Level 8.5 L, Aspartate Amino Transf (AST/SGOT) 13 L, Alanine Aminotransferase (ALT/SGPT) 16, Alkaline Phosphatase 73, Total Bilirubin 0.8, Total Protein 6.9, Albumin 2.9 L Microbiology Microbiology 09/26/16 Blood Culture, Received Pending 09/26/16 Blood Culture, Received Pending 09/25/16 Blood Culture - Preliminary, Resulted 09/25/16 Urine Culture - Final, Complete Staphylococcus Epidermidis TOYA POTTER PA-C September 27, 2016 12:28 John Potter MD September 27, 2016 13:45
[2016-09-27 16:00] VITALS: BP 150/75
[2016-09-27 22:00] VITALS: BP 155/76
--- NOTE | 2016-09-27 23:30 | PHACANCOPD ---
PHARMACY VANCOMYCIN DOSING Pt Demographics Demographics Patient Age:71 , Weight:96.400 , Gender: male Adjusted Body Weight Date: 09/26/16, Adjusted Body Weight: Kg Events Past 24 Hours Events Past 24 Hours: NO: Dialysis, Diuretic Therapy, Change in CrCl, Fever, Elevation in WBC, Pending Diagnostics, Pending Procedures, Other Vancomycin Vancomycin Target Ranges: 10-20 mcg/ml Vancomycin Load Y/N: Yes Load Dose Date Time Vancomycin Load Dose: 2000MG Date: 09-27 Time: 0000 Vancomycin Dose Date: 09/27/16. Current Vancomycin Dose: [1000MG Q8H] Intermittent Dosing?: No Labs Labs Item Value Date Time White Blood Count 9.8 K/mm3 09/27/16 0707 Creatinine 1.04 MG/DL 09/27/1607 Vancomycin Level Trough 16.4 UG/ML 09/27/16 2256 Vital Signs Label Value Date Time Patient Temperature 98.7 degrees F 09/27/16 2200 Temperature Source Temporal 09/27/16 2200 Micro Microbiology 09/26/16 Blood Culture - Preliminary, Resulted 09/26/16 Blood Culture - Preliminary, Resulted No growth after 24 hours . All specim... 09/25/16 Blood Culture - Preliminary, Resulted 09/25/16 Urine Culture - Final, Complete Staphylococcus Epidermidis Creatinine Clearance Date:09/26/16. Creatinine Clearance: [58]. Assessment and Plan Maintaining Current Dose?: Yes Reason for dose change: No Dose Change Pharmacist Note Pharmacist Note Date: 09/26/16. Pharmacist note:Trough of 16.4 is within target range will continue current dosing. Will continue to monitor and make adjustments as needed. SARAH KIM PHARMACY September 27, 2016 23:30
[2016-09-28] MEDS: VANCOMYCIN HCL 1,000 MG, VIAL MATE ADAPTER 1 EACH in D5W 250 ML IV SCH ×4 (00:02→23:58)
[2016-09-28] MEDS: PERCOCET 5MG/325MG TAB PO PRN (05:39)
[2016-09-28 06:00] VITALS: BP 172/80
--- NOTE | 2016-09-28 08:40 | HPE ---
DATE OF ADMISSION: 09/25/2016 CHIEF COMPLAINT: Gross hematuria. This is a 71-year-old white male, patient of Dr. Fabian Benoit, who presented to [facility] Emergency Room (ER) with persistent gross hematuria despite 09/06/[address] with fulguration of prostatic ureteral bleeding by Dr. Awan due to obstructing left kidney stone and gross hematuria. He denies any dysuria, increased frequency, fever, or chills. No abdominal pain. Of note, for presurgical screening, a chest x-ray was done that showed questionable pulmonary nodules. Subsequent chest CT from 09/23/2016 without contrast showed innumerable bilateral pulmonary mass lesions compatible with metastatic disease, measuring up to 29 mm on the right middle lobe and 26 mm on the right upper lobe without significant adenopathy. CT of the abdomen and pelvis from 09/25/2016 showed left staghorn calculus, hemorrhagic debris in the left renal pelvis into the bladder, 2 cm fat-containing periumbilical hernia. PAST MEDICAL HISTORY: Hospitalizations: None recently. Illnesses: Impaired fasting glucose, obesity, history of prostate cancer, [place] 5, diagnosed in 2010, for which he has been undergoing watchful waiting. Last prostate-specific antigen (PSA) from 07/04/2016 was 8.3. Prior to this it had been in the 2-range. Hyperlipidemia, nephrolithiasis. MEDICATIONS: Per [facility] Confirm with patient. - aspirin 81 by mouth daily - losartan 50 by mouth daily - Percocet 5/325 one to two tablets every 6 hours as needed pain ALLERGIES: PENICILLIN, ZETIA, MULTIPLE STATINS, CIPRO, CHLORTHALIDONE, ATENOLOL. SOCIAL HISTORY: Patient is present today with healthcare proxy, a son, at bedside. No previous nicotine use. No alcohol abuse. No illicit drug use. Patient is , retired. REVIEW OF SYSTEMS: CONSTITUTIONAL: Patient reports over last year elective close to 40-pound weight loss. No night sweats. VISION: No diplopia, scotoma. ENT: No epistaxis, hoarseness. CARDIOVASCULAR: No chest pain or palpitations. PULMONARY: No shortness of breath. No wheeze. GASTROINTESTINAL: No odynophagia, melena, hematochezia. GENITOURINARY: No dysuria. DERMATOLOGIC: No rash. ENDOCRINE: No polydipsia. RHEUMATOLOGY: No joint or tendon pain. NEUROLOGIC: No paresthesia or weakness. PHYSICAL EXAMINATION: 98.0, 73, 18, 140/87, 97% on room air. Patient is alert and oriented times three in no acute distress. HEAD : Normocephalic, atraumatic. EARS: Tympanic membranes (TMs) normal bilaterally. EYES: Bilateral eyes, clear conjunctivae. NOSE: Without discharge. THROAT: Clear oropharynx. NECK: Without adenopathy or thyromegaly. CARDIOVASCULAR: Regular rate and rhythm without murmur, rub, or gallop. RESPIRATORY: Normal respiratory effort. Decreased breath sounds, bilateral bases. ABDOMEN: Nontender, nondistended. Positive bowel sounds. No hepatosplenomegaly. EXTREMITIES: With 1 mm pretibial pitting edema bilateral. NEUROLOGIC: Nonfocal. The patient has a irrigating catheter in place, irrigating at 100 mL an hour with mildly blood-tinged urine. INVESTIGATIONS: Showed WBC 10.5, hemoglobin 14.2. BUN 23, creatinine 1.4, baseline creatinine of 1.2, CT of chest as above. Urine and blood cultures are pending. Urine culture from 09/06/2016 showed no growth of clinical significance. ASSESSMENT AND PLAN: 1. Gross hematuria as per requested by urology. Will admit the patient under medical/surgical bed, management of the catheter, and subsequent treatment of the gross hematuria, will defer to urology. Urine culture is pending as above. 2. Renal. Acute kidney injury probably related to mild dehydration. Will follow electrolytes closely. 3. Cardiovascular: Continue home dose losartan. 4. Pulmonary. Will review CT of the chest with pulmonary medicine to consider bronchoscopy versus interventional radiology transcutaneous biopsy of lesions.
[2016-09-28 08:41] LABS: MEAN CORPUSCULAR HEMOGLOBIN 30.7 pg (27.0-33.0); MEAN CORPUSCULAR VOLUME 90.3 fl (80.0-96.0); RED CELL DISTRIBUTION WIDTH 13.5 % (11.5-14.5); WHITE BLOOD COUNT 8.5 K/mm3 (4.0-10.0)
[2016-09-28 08:50] LABS: ALBUMIN/GLOBULIN RATIO 0.88 (1.00-1.93); ALKALINE PHOSPHATASE 69 U/L (45-117); ALT/SGPT 17 U/L (12-78); ANION GAP 6 MEQ/L (8-16); AST/SGOT 12 U/L (15-37); BILIRUBIN,TOTAL 0.5 MG/DL (0.2-1.0); BLOOD UREA NITROGEN 10 MG/DL (7-18); CALCIUM LEVEL 8.3 MG/DL (8.8-10.2); CARBON DIOXIDE LEVEL 28 MEQ/L (21-32); CHLORIDE LEVEL 104 MEQ/L (98-107); CREATININE FOR GFR 1.03 MG/DL (0.70-1.30); GLOMERULAR FILTRATION RATE > 60.0 (>42); GLUCOSE, FASTING 142 MG/DL (83-110); POTASSIUM SERUM 3.8 MEQ/L (3.5-5.1); SODIUM LEVEL 138 MEQ/L (136-145); TOTAL PROTEIN 6.4 GM/DL (6.4-8.2)
[2016-09-28] MEDS: TAMSULOSIN 0.4 MG CAP PO SCH (09:00)
[2016-09-28] MEDS: LOSARTAN 50 MG TAB PO SCH (09:01)
[2016-09-28] MEDS ORDERED: TUBERCULIN PPD 5 UNITS/0.1 ML ID ONE (10:00)
--- NOTE | 2016-09-28 10:10 | IPNPDOC ---
Subjective Date Seen The patient was seen on 09/28/16. Subjective Chief Complaint/HPI The patient is a 71-year-old male admitted with a reason for visit of Hematuria , Gross. Events since last encounter Still some slight suprapubic discomfort. Otherwise feels well. No BM since prior to admission Constitutional: Denies: Chills, Fever Pulmonary: Denies: Dyspnea, Cough Cardiovascular: Denies: Chest Pain, Palpitations, Orthopnea Gastrointestinal: Reports: Abdominal Pain, Constipation, Denies: Nausea, Vomiting, Diarrhea Objective Physical Examination General Exam: Positive: Alert, No Acute Distress ENT Exam: Positive: Mucous membr. moist/pink Neck Exam: Positive: Supple Chest Exam: Positive: Clear to auscultation, Normal air movement Heart Exam: Positive: Rate Normal, Normal S1, Normal S2 Abdomen Exam: Positive: Normal bowel sounds, Soft, Tenderness (tender suprapubic region without guard or rebound) Extremity Exam: Negative: Edema Psych Exam: Positive: Mental status NL, Anxiety, Oriented x 3 Assessment /Plan Problems (1) Hematuria, gross Status: Acute Response to Treatment: Uncontrolled Discussed With: Comb Fixer, Patient Problem Specific Plan: Consult Specialist, Monitor Clinically, Repeat Labs Problem Text: 09/28 - Per Urology - Ivy d/c'd today. Uro had been planning for PCNL as outpt with pre-op testing started. + 1.5 cm L renal pelvis staghorn calculus, + stent for hydronephrosis, 9 mm non obstruction L stone, hemorrhagic debris noted on CT A & P (2) UTI (urinary tract infection) Status: Acute Problem Text: U/C grew staph epi b/C x 2/3 preliminary with gram + cocci in clusters Continue Vanco IV - await final IAN on blood cultures (3) Pulmonary nodules/lesions, multiple Status: Acute Response to Treatment: Stable Discussed With: Patient Problem Specific Plan: Consult Specialist, Monitor Clinically Problem Text: Informal discussion with Dr. Woo who reviewed [facility] CT. He feels the nodules are suspicious for hematogenous metastatic spread possibly from prostate cancer. He recommends outpatient evaluation with either biopsy with IR or bronch, but most likely CT guided biopsy with IR. (Dr. Woo feels Ct guided biopsy would be best approach) JFW: as above--outpt w/u planned (4) Hydronephrosis Status: Acute Problem Text: see above. renal function improved to normal. (5) Ureterolithiasis Status: Acute Problem Text: See above. (6) Staghorn calculus Status: Acute Problem Text: See above. (7) Prostate cancer Status: Chronic Response to Treatment: Stable Problem Specific Plan: Monitor Clinically Problem Text: Pt follows with Uro, his PSA has increased from 1 to 8 - 12.9 per review of his records. He has recently established with Uro in [place] who have begun to follow this. (8) HTN (hypertension) Status: Chronic Response to Treatment: Stable Problem Text: continue Cozaar Plan/VTE VTE Prophylaxis Ordered?: Yes (SCDs/TEDS - no anticoag due to hematuria) VTE Exclusion Pharmacological: Active Bleeding Plan/Urinary Catheter Reason for insertion/continuin: Other-document below [facility]O Vital Signs Date Time Temp Pulse Resp B/P (MAP) Pulse Ox O2 Delivery O2 Flow Rate FiO2 09/28/16 09:01 171/81 09/28/16 06:09 18 09/28/16 06:00 98.0 71 94 Room Air I&O- Last 24 Hours up to 6 AM 09/28/16 06:00 Intake Total 2550 ml Output Total 2500 ml Balance 50 ml Laboratory Data 24H LABS Laboratory Tests 2 09/27/16 22:56: Vancomycin Level Trough 16.4 09/28/16 08:19: Anion Gap 6L, Glomerular Filtration Rate > 60.0, Blood Urea Nitrogen 10, Creatinine 1.03, Sodium Level 138, Potassium Level 3.8, Chloride Level 104, Carbon Dioxide Level 28, Calcium Level 8.3L, Aspartate Amino Transf (AST/SGOT) 12L, Alanine Aminotransferase (ALT/SGPT) 17, Alkaline Phosphatase 69, Total Bilirubin 0.5, Total Protein 6.4, Albumin 3.0L, Albumin/Globulin Ratio 0.88L CBC/BMP Laboratory Tests 09/28/16 08:19 Red Blood Count 4.26 L, Mean Corpuscular Volume 90.3, Mean Corpuscular Hemoglobin 30.7, Mean Corpuscular Hemoglobin Concent 34.0, Red Cell Distribution Width 13.5, Calcium Level 8.3 L, Aspartate Amino Transf (AST/SGOT) 12 L, Alanine Aminotransferase (ALT/SGPT) 17, Alkaline Phosphatase 69, Total Bilirubin 0.5, Total Protein 6.4, Albumin 3.0 L Microbiology Microbiology 09/26/16 Blood Culture - Preliminary, Resulted 09/26/16 Blood Culture - Preliminary, Resulted No growth after 24 hours . All specim... 09/25/16 Blood Culture - Preliminary, Resulted 09/25/16 Urine Culture - Final, Complete Staphylococcus Epidermidis TOYA MORTON PA-C September 28, 2016 10:09
[2016-09-28] MEDS: MIRALAX *UNIT DOSE* 17GM PACKET PO SCH (11:11)
[2016-09-28] MEDS: DOCUSATE SODIUM 100 MG CAP PO SCH ×2 (11:11→20:08)
[2016-09-28 14:00] VITALS: BP 130/80
[2016-09-28 22:00] VITALS: BP 164/84
[2016-09-29 06:00] VITALS: BP 142/90
[2016-09-29 06:45] LABS: BASO % 0.6 % (0.0-1.0); EOS # 0.6 K/mm3 (0.0-0.50); EOS % 7.6 % (0.0-3.0); LARGE UNSTAINED CELL # 0.1 K/mm3 (0.0-0.4); LARGE UNSTAINED CELL % 1.6 % (0.0-4.0); LYMPH # 2.1 K/mm3 (1.5-4.5); LYMPH % 23.4 % (24.0-44.0); MEAN CORPUSCULAR HEMOGLOBIN 30.8 pg (27.0-33.0); MEAN CORPUSCULAR HGB CONC 34.6 g/dl (32.0-36.5); MEAN CORPUSCULAR VOLUME 89.2 fl (80.0-96.0); MONO # 0.5 K/mm3 (0.0-0.8); MONO % 5.7 % (0.0-5.0); NEUTROPHILS # 5.1 K/mm3 (1.8-7.7); NEUTROPHILS % 61.2 % (36.0-66.0); PLATELET COUNT, AUTOMATED 218 k/mm3 (150-450); RED CELL DISTRIBUTION WIDTH 13.3 % (11.5-14.5); WHITE BLOOD COUNT 8.4 K/mm3 (4.0-10.0)
[2016-09-29 07:01] LABS: ANION GAP 4 MEQ/L (8-16); BLOOD UREA NITROGEN 11 MG/DL (7-18); CALCIUM LEVEL 8.9 MG/DL (8.8-10.2); CARBON DIOXIDE LEVEL 33 MEQ/L (21-32); CHLORIDE LEVEL 102 MEQ/L (98-107); CREATININE FOR GFR 1.04 MG/DL (0.70-1.30); GLOMERULAR FILTRATION RATE > 60.0 (>42); GLUCOSE, FASTING 104 MG/DL (83-110); POTASSIUM SERUM 3.6 MEQ/L (3.5-5.1); SODIUM LEVEL 139 MEQ/L (136-145)
[2016-09-29] MEDS: VANCOMYCIN HCL 1,000 MG, VIAL MATE ADAPTER 1 EACH in D5W 250 ML IV SCH ×3 (08:20→23:31)
[2016-09-29] MEDS: DOCUSATE SODIUM 100 MG CAP PO SCH ×2 (08:21→20:22)
[2016-09-29] MEDS: MIRALAX *UNIT DOSE* 17GM PACKET PO SCH (08:21)
[2016-09-29] MEDS: TAMSULOSIN 0.4 MG CAP PO SCH (08:21)
[2016-09-29] MEDS: LOSARTAN 50 MG TAB PO SCH (08:25)
--- NOTE | 2016-09-29 12:08 | IPN ---
DATE: 09/29/2016 John feels great. He is up and walking around. His catheter is out. His urine is clear. No fever or chills. He did have Staphylococcus epidermidis bacteremia on 2 out of 3 blood cultures on separate days. Same bacteria in his urine. Echocardiogram has been ordered but has not been performed yet. PHYSICAL EXAMINATION: 160/80, pulse 61, respiratory rate 17, 97% oxygen saturation. Lungs: Clear. Heart: Regular rate and rhythm. No murmur. Abdomen: Soft, nontender. LABORATORIES: CBC looks unremarkable. CMP looks unremarkable. PLAN: We are waiting for the echocardiogram. Once that comes back and if it does not show any evidence of endocarditis, we could think about discharge planning. He is currently on intravenous (IV) vancomycin pending results of the echo. I do not want to stop that until we see that his heart valves are clear. I will probably be sending him home on Zyvox as he is PENICILLIN [employer]. Patient and family services (PFS) will need to get involved with prior approval for the Zyvox.
[2016-09-29 14:00] VITALS: BP 160/72
--- NOTE | 2016-09-29 19:39 | ECHO ---
DATE OF PROCEDURE: 09/29/2016 REFERRING PHYSICIAN: Hugo Jaramillo MD, John Potter MD INDICATION: Bacteremia. HEIGHT: 173 cm WEIGHT: 96 kg DIMENSIONS: IVS: 1.1 LV: 4.6 LVPW: 0.8 LA: 3.7 Aorta: 3.2 IVC: 1.8 FINDINGS: The study is of good technical quality. Left ventricle is of normal size and systolic function with estimated left ventricular ejection fraction (LVEF) 65-70%. No segmental wall motion abnormalities are appreciated. Right ventricle is also normal size and systolic function. Both atria appear normal. All four cardiac valves were well seen and appear normal. No pericardial effusion is noted. Aortic root is normal. Aortic arch was not well seen. Abdominal aorta appears normal. Doppler interrogation of aortic valve reveals no stenosis or insufficiency. There is also no mitral stenosis or insufficiency. Mild tricuspid insufficiency is present. Calculated pulmonary artery pressure is in 30s corresponding to mild pulmonary hypertension. Pulmonic valve is functionally competent. Mitral inflow pattern and tissue Doppler imaging of mitral annulus reveal grade 1 diastolic dysfunction. CONCLUSION 1. Study is of good technical quality. 2. Normal left ventricle (LV) size with normal LV systolic function and grade 1 diastolic dysfunction. 3. No significant valvular disease. 4. Normal central venous pressure. 5. At least mild pulmonary hypertension. COMMENT: Subacute bacterial endocarditis (SBE) prophylaxis is not recommended. No vegetations were visualized.
[2016-09-29 22:00] VITALS: BP 144/90
[2016-09-30] MEDS: PERCOCET 5MG/325MG TAB PO PRN (00:14)
[2016-09-30 06:00] VITALS: BP 152/82
[2016-09-30 06:02] LABS: BASO # 0.1 K/mm3 (0.0-0.2); BASO % 0.7 % (0.0-1.0); EOS # 0.8 K/mm3 (0.0-0.50); EOS % 9.4 % (0.0-3.0); LARGE UNSTAINED CELL # 0.3 K/mm3 (0.0-0.4); LARGE UNSTAINED CELL % 3.1 % (0.0-4.0); LYMPH # 2.9 K/mm3 (1.5-4.5); LYMPH % 36.5 % (24.0-44.0); MEAN CORPUSCULAR HEMOGLOBIN 30.4 pg (27.0-33.0); MEAN CORPUSCULAR HGB CONC 34.2 g/dl (32.0-36.5); MEAN CORPUSCULAR VOLUME 88.9 fl (80.0-96.0); MONO # 0.5 K/mm3 (0.0-0.8); MONO % 6.2 % (0.0-5.0); NEUTROPHILS # 3.5 K/mm3 (1.8-7.7); NEUTROPHILS % 44.1 % (36.0-66.0); PLATELET COUNT, AUTOMATED 253 k/mm3 (150-450); RED CELL DISTRIBUTION WIDTH 13.1 % (11.5-14.5)
[2016-09-30 06:19] LABS: ANION GAP 6 MEQ/L (8-16); BLOOD UREA NITROGEN 11 MG/DL (7-18); CALCIUM LEVEL 9.1 MG/DL (8.8-10.2); CARBON DIOXIDE LEVEL 32 MEQ/L (21-32); CHLORIDE LEVEL 101 MEQ/L (98-107); CREATININE FOR GFR 1.12 MG/DL (0.70-1.30); GLOMERULAR FILTRATION RATE > 60.0 (>42); GLUCOSE, FASTING 96 MG/DL (83-110); POTASSIUM SERUM 4.5 MEQ/L (3.5-5.1); SODIUM LEVEL 139 MEQ/L (136-145)
[2016-09-30 08:26] VITALS: BP 146/82
[2016-09-30] MEDS: DOCUSATE SODIUM 100 MG CAP PO SCH (08:26)
[2016-09-30] MEDS: MIRALAX *UNIT DOSE* 17GM PACKET PO SCH (08:26)
[2016-09-30] MEDS: VANCOMYCIN HCL 1,000 MG, VIAL MATE ADAPTER 1 EACH in D5W 250 ML IV SCH (08:26)
[2016-09-30] MEDS: LOSARTAN 50 MG TAB PO SCH (08:26)
[2016-09-30] MEDS: TAMSULOSIN 0.4 MG CAP PO SCH (08:27)
[2016-09-30] MEDS ORDERED: PPD DOCUMENTATION ENTRY MISC XX SCH (10:00)
[2016-09-30] MEDS ORDERED: COLA100C3 PO (10:11)
[2016-09-30] MEDS ORDERED: CLIN1CAP5 PO (10:11)
[2016-09-30] MEDS ORDERED: FLOM5CAP PO (10:11)
--- NOTE | 2016-09-30 20:50 | DSES ---
DATE OF ADMISSION: 09/25/2016 DATE OF DISCHARGE: 10/01/2016 BRIEF HISTORY AND PHYSICAL: The patient is a 71-year-old who presented with gross hematuria and back pain. He has known left renal stone and has a stent in place. Follows with Dr. Awan. He also has a known history of prostate cancer, but that is been in quiescence, but his prostate-specific antigen (PSA) has gone up recently to 12 and is being worked up for that as well. He has a procedure scheduled for management of the left renal stone and stent scheduled for later in October. He specifically came to the hospital because of retention and suprapubic discomfort as well as significant bleeding. PAST MEDICAL HISTORY: 1. Prostate cancer as above. 2. Left renal calculus with hydronephrosis. 3. Recurrent gross hematuria. 4. BPH. 5. Newly diagnosed pulmonary nodules of uncertain etiology. PERTINENT LABS ON ADMISSION. White count 10, hemoglobin 14. Creatinine 1.37. IMAGING: CT the pelvis showed hemorrhagic debris extends from the left renal pelvis into the bladder, previously identified staghorn calculus of left kidney unchanged with grade III hydronephrosis minimally improved secondary to ureteral stent placement, 9 mm nonobstructing calculus in the right kidney along with a 1.5 cm hypodensity likely representing a cyst. Colonic diverticulosis without acute diverticulitis. Lung bases demonstrate noncalcified pulmonary nodules measuring up to 12 mm and correlate with a recent chest CT. HOSPITAL COURSE: 1. The patient was admitted for hematuria. Three-way catheter was placed with fluid irrigation. The hematuria gradually improved. Ivy catheter was discontinued and he is voiding normally without further hematuria. 2. Urosepsis or urinary tract infection with bacteremia. Urine culture grew Staphylococcus epidermidis. Blood cultures times two grew Staphylococcus epidermidis. He was treated with intravenous (IV) vancomycin and received three days worth of vancomycin treatment. He is allergic to PENICILLIN and CEPHALOSPORINS and, therefore, based on sensitivities he has been switched to oral clindamycin. Originally Zyvox was considered, but there is a 1400 dollar copay. He did receive an echocardiogram to look for vegetations and this was negative for vegetations, and he has been afebrile with normal white count and at this point, it is felt reasonable to be switched to oral clindamycin for further management of the bacteremia. 3. Lung nodules on CT the chest. This was reviewed informally with Dr. Grider, who feels that these nodules look to be from a hematogenous spread of some a form of metastatic disease. He does have known history of prostate cancer with a recent rise and his PSA. However, the PSA is only 12, would probably expect that to be much higher if he had metastatic spread to the lungs. Regardless, he will need biopsy of these lung nodules as an outpatient and we will defer that to Dr. Benoit. Based on the location of the nodules, Dr. Woo feels that there is a peripheral nodule that could be biopsied through interventional radiology as an outpatient. Bronchoscopy with biopsy was also considered but on further review of the imaging, Dr. Woo feels that interventional radiology with a CT guided biopsy of the peripheral lesion would be the best approach. Again, this will be deferred to Dr. Benoit to arrange as soon as possible as an outpatient. 4. Staghorn calculus with stent placement. He has arrangements for treatment of this in October with urology. 5. History of prostate cancer as above. DISPOSITION The patient is stable for discharge home to followup with Dr. Benoit next week. Followup with urology per their office, Dr. Awan. Diet regular. Activity as tolerated. MEDICATIONS: - clindamycin 150 mg every six hours for 10 days - Colace 100 mg twice a day - Flomax 0.4 mg daily - losartan 50 mg daily - Percocet 5/325 one tablet four times a day as needed for pain; he has been using these quite sparingly - aspirin 81 mg daily DISCHARGE DIAGNOSES 1. Hematuria. 2. Urinary tract infection with bacteremia secondary to Staphylococcus epidermidis. 3. Pulmonary nodules on chest CT. 4. History of prostate cancer. 5. Staghorn calculus left kidney with status post stent placement. 6. Benign prostatic hypertrophy (BPH). 7. Hypertension.
== END 2016-09-30 13:45 | disposition home or self-care (01) | DRG 694 ==
LOC: M ED 08:50 → M ED INP 17:11 → M MS4PR 21:00 → M MSPAV 09-28 13:51
PROVIDERS: ADMIT Family Medicine; ATTEND Family Medicine
DX: N20.0 Calculus of kidney (principal); N39.0 Urinary tract infection, site not specified; N13.30 Unspecified hydronephrosis; N40.1 Benign prostatic hyperplasia with lower urinary tract symptoms; R91.8 Other nonspecific abnormal finding of lung field; I10 Essential (primary) hypertension; K42.9 Umbilical hernia without obstruction or gangrene; R31.0 Gross hematuria; Z85.46 Personal history of malignant neoplasm of prostate; Z88.0 Allergy status to penicillin; Z88.1 Allergy status to other antibiotic agents; B95.7 Other staphylococcus as the cause of diseases classified elsewhere; Z96.0 Presence of urogenital implants; Z79.82 Long term (current) use of aspirin; Z79.899 Other long term (current) drug therapy; Z88.8 Allergy status to other drugs, medicaments and biological substances

== ENCOUNTER → 2016-10-24 | Outpatient (REF) | payer MEDICARE ==
[~2016-10-24] MED LIST changes: +CLIN1CAP5 PO; +COLA100C3 PO; +FLOM5CAP PO; +NITR100C37 PO
== END ==
LOC: M SFHCCLAY 10:32
PROVIDERS: ATTEND Nurse Practitioner Family
DX: Z01.818 Encounter for other preprocedural examination (principal); C61 Malignant neoplasm of prostate; N20.0 Calculus of kidney

== ENCOUNTER 2016-10-26 16:30 | Inpatient (IN) | payer MEDICARE ==
[~2016-10-26] VITALS: Ht 172.7 cm; Wt 92.9 kg
[~2016-10-26 16:30] MED LIST changes: -NITR100C37 PO
[2016-10-28] VITALS (8 sets, daily range): BP systolic 120–141; BP diastolic 57–68
[2016-10-28] MEDS ORDERED: GENTAMICIN 80 MG in APPROPRIATE DILUENT 1 EA IV ONE (08:15)
[2016-10-28] MEDS ORDERED: VANCOMYCIN HCL 1,000 MG, VIAL MATE ADAPTER 1 EACH in D5W 250 ML IV ONE (08:15)
[2016-10-28] MEDS ORDERED: ROCURONIUM BROMIDE 50 MG/5 ML VIAL As Ordered ONE (09:31)
[2016-10-28] MEDS ORDERED: PROPOFOL 200 MG/20 ML VIAL As Ordered ONE (09:31)
[2016-10-28] MEDS ORDERED: LIDOCAINE 2% INJ 100 MG/5 ML SDV (FOR ANES.) As Ordered ONE (09:31)
[2016-10-28] MEDS ORDERED: fentaNYL 100 MCG/2 ML INJECTION (J3010) As Ordered ONE ×2 (09:32→14:01)
[2016-10-28] MEDS ORDERED: MIDAZOLAM INJ 2 MG/2 ML VIAL (J2250) As Ordered ONE (09:32)
[2016-10-28] MEDS ORDERED: CONRAY-60 60% 50ML VIAL (Q9961) As Ordered ONE (12:04)
[2016-10-28] MEDS ORDERED: ONDANSETRON 4MG/2ML VIAL (J2405) As Ordered ONE (12:12)
[2016-10-28] MEDS ORDERED: ePHEDrine SULFATE 25 MG/5 ML(5MG/ML) SYRINGE As Ordered ONE (13:39)
[2016-10-28] MEDS ORDERED: MORPHINE 2 MG/ML 1ML SYRINGE IV PRN (15:45)
[2016-10-28] MEDS ORDERED: ACETAMINOPHEN TAB 650MG DOSE (2X325MG) PO PRN (15:45)
[2016-10-28] MEDS ORDERED: PERCOCET 5MG/325MG TAB PO PRN ×2 (15:45→16:00)
[2016-10-28] MEDS ORDERED: ONDANSETRON 4MG/2ML VIAL (J2405) IV PRN ×2 (15:45→16:00)
[2016-10-28] MEDS ORDERED: fentaNYL 100 MCG/2 ML INJECTION (J3010) IV PRN (16:00)
[2016-10-28] MEDS ORDERED: LR 1,000 ML IV SCH (16:00)
--- NOTE | 2016-10-28 16:05 | REP ---
C-ARM VIEWS OF THE ABDOMEN: Multiple C-arm views are performed of the abdomen. A ureteral catheter is visualized. Proximal end is coiled in the renal pelvis. Renal pelvis is partially opacified with contrast. Nephrostomy catheter is placed. 7 minutes 16 seconds fluoroscopy time utilized. Signed by Vitor Berumen MD 10/28/2016 04:47 P
[2016-10-28] MEDS: HYDROmorphone HCL 1 MG/ML SYRINGE (J1170) IV PRN ×5 (16:15→16:35)
[2016-10-28] MEDS: PERCOCET 5MG/325MG TAB PO PRN ×2 (16:15→16:45)
[2016-10-28 16:23] LABS: MEAN CORPUSCULAR HEMOGLOBIN 30.4 pg (27.0-33.0); MEAN CORPUSCULAR HGB CONC 34.1 g/dl (32.0-36.5); MEAN CORPUSCULAR VOLUME 89.1 fl (80.0-96.0); RED CELL DISTRIBUTION WIDTH 13.7 % (11.5-14.5); WHITE BLOOD COUNT 10.5 K/mm3 (4.0-10.0)
[2016-10-28 16:48] LABS: ANION GAP 9 MEQ/L (8-16); BLOOD UREA NITROGEN 16 MG/DL (7-18); CALCIUM LEVEL 8.6 MG/DL (8.8-10.2); CARBON DIOXIDE LEVEL 26 MEQ/L (21-32); CHLORIDE LEVEL 102 MEQ/L (98-107); CREATININE FOR GFR 1.21 MG/DL (0.70-1.30); GLOMERULAR FILTRATION RATE > 60.0 (>42); GLUCOSE, FASTING 104 MG/DL (83-110); POTASSIUM SERUM 3.7 MEQ/L (3.5-5.1); SODIUM LEVEL 137 MEQ/L (136-145)
[2016-10-28] MEDS: NS 1,000 ML IV SCH ×2 (17:00→23:36)
[2016-10-28] MEDS ORDERED: SEVOFLURANE INHAL SOLN 250 ML BTL As Ordered ONE (18:49)
[2016-10-28] MEDS: DOCUSATE SODIUM 100 MG CAP PO SCH (19:44)
[2016-10-28] MEDS: GENTAMICIN 80 MG in APPROPRIATE DILUENT 1 EA IV SCH (19:44)
[2016-10-29] MEDS ORDERED: VANCOMYCIN HCL 1,000 MG, VIAL MATE ADAPTER 1 EACH in D5W/0.2% SODIUM CHLORIDE 250 ML IV SCH ×3
[2016-10-29 02:00] VITALS: BP 117/57
[2016-10-29] MEDS: GENTAMICIN 80 MG in APPROPRIATE DILUENT 1 EA IV SCH (03:34)
[2016-10-29 06:00] VITALS: BP 137/67
[2016-10-29 06:12] LABS: MEAN CORPUSCULAR HEMOGLOBIN 30.4 pg (27.0-33.0); MEAN CORPUSCULAR VOLUME 89.4 fl (80.0-96.0); RED CELL DISTRIBUTION WIDTH 13.7 % (11.5-14.5); WHITE BLOOD COUNT 8.8 K/mm3 (4.0-10.0)
[2016-10-29 06:22] LABS: ANION GAP 6 MEQ/L (8-16); BLOOD UREA NITROGEN 13 MG/DL (7-18); CALCIUM LEVEL 8.2 MG/DL (8.8-10.2); CARBON DIOXIDE LEVEL 30 MEQ/L (21-32); CHLORIDE LEVEL 103 MEQ/L (98-107); CREATININE FOR GFR 1.19 MG/DL (0.70-1.30); GLOMERULAR FILTRATION RATE > 60.0 (>42); GLUCOSE, FASTING 112 MG/DL (83-110); POTASSIUM SERUM 3.6 MEQ/L (3.5-5.1); SODIUM LEVEL 139 MEQ/L (136-145)
[2016-10-29 08:51] VITALS: BP 137/67
[2016-10-29] MEDS: DOCUSATE SODIUM 100 MG CAP PO SCH (08:51)
[2016-10-29] MEDS: NS 1,000 ML IV SCH (08:54)
[2016-10-29] MEDS ORDERED: LOSARTAN 50 MG TAB PO SCH (09:00)
[2016-10-29] MEDS ORDERED: TAMSULOSIN 0.4 MG CAP PO SCH (09:00)
--- NOTE | 2016-10-29 09:41 | RO ---
DATE OF PROCEDURE: 10/28/2016 PREPROCEDURE DIAGNOSIS: Left kidney stones. POSTPROCEDURE DIAGNOSIS: Left kidney stones. PROCEDURE: Left percutaneous nephrolithotomy, left antegrade nephrostogram with intraoperative interpretation of images, left ureteral stent exchange. SURGEON: Dr. Alex Awan FORESTRY HUNTER: None. ANESTHESIA: General. OPERATIVE INDICATIONS: This is a 71-year-old male who had a known 3.2 cm staghorn left renal calculus. He was brought to interventional radiology yesterday for attempted nephroureteral stent placement on that side and due to difficulty getting a wire down into the bladder he only had a nephrostomy tube placed. He was brought to the operating room today for left percutaneous nephrolithotomy using that nephrostomy tube as access. DESCRIPTION OF PROCEDURE: The patient was brought to the operating room where general anesthesia was induced. Culture specific antibiotics were infused. He then had a Ivy catheter placed under sterile conditions. He was then placed in a prone position and prepped and draped in the usual sterile fashion. The previously placed nephrostomy tube was utilized to try to gain access to the left kidney. Of note, after advancing a wire into the nephrostomy tube, the nephrostomy tube pulled out and the wire also pulled out and we lost access to the kidney. At this point, we contacted Dr. Sky of interventional radiology and he then scrubbed in and was able to regain access into the left kidney and ultimately got two wires up all the way into the kidney and had the wires curled into an upper pole calyx. After Dr. Sky was done with his part of the procedure , I then went back in and made an approximately 3-4 cm transverse skin incision adjacent to the wires. I secured the guide wire to the drape to serve as a safety wire and utilized the super stiff wire to advance a balloon dilator into the left kidney. The balloon was then inflated to 18 atmospheres and left there for a minute. I then advanced the access sheath over the balloon into the left kidney. The balloon was then let down and removed, leaving the access sheath as well as the wire in place. I then went in with a nephroscope into the left kidney and the large staghorn stone was seen. I then utilized a Cyberwand to fragment the stone into several smaller pieces and suctioned all the pieces out at the same time. I kept going and entered each calyx in which the stone was seen until all the stones had been removed. At this point, after confirming all the stones had been removed, I then decided to exchange the patient's ureteral stent since it had been in place for about two months. At this point, I went in with a flexible cystoscope and examined the kidney and of note I did see another small stone and that was removed with a basket. I then utilized the basket to grasp the previously placed stent and I removed that stent from the patient's left kidney. At this point, I removed the previously placed super stiff wire as it was still curled in the upper pole calyx. I then advanced the super stiff wire into the flexible cystoscope and guided the wire down into the ureter all the way down to the bladder. After that was done, the guide wire that was serving as a safety wire was also removed. I then advanced a dual lumen ureteral catheter over the super stiff wire into the left renal pelvis. I then utilized the other port to advance the guidewire at this point down into the bladder as well. At this point, we had two wires in the bladder. The dual lumen ureteral catheter was then removed, leaving both wires in place. At this point, I advanced a 7 Korean x 22-32 cm JJ ureteral stent over the super stiff wire down into the left collecting system. The stent was advanced all the way to the bladder and then the wire was removed. There were adequate curls of the stent in the bladder and in the left renal pelvis. I then utilized the guidewire to advance an 18 [place] tip catheter into the left renal pelvis. At this point, the balloon was inflated with approximately 2-3 milliliters of contrast and this confirmed the end of the catheter was in the renal pelvis. I then removed the access sheath as well as the wire. At this point, I shot contrast down the [place] tip catheter for an antegrade nephrostogram and there was no contrast extravasation. Contrast flowed freely down the ureter and into the bladder. This catheter was then connected to gravity drainage and was secured to the skin with a #3-0 silk suture. Dressings were then applied and this marked the conclusion of the procedure. The patient was then flipped back into supine position, awakened from anesthesia and transported to the recovery room in stable condition. Estimated blood loss: 50 mL. Complications: None. Specimen: Kidney stone fragments. Plan: The patient will be admitted to the hospital overnight and likely discharged home tomorrow. I will likely remove his nephrostomy catheter as well as his Ivy catheter tomorrow. He will go home with a stent in place for a few weeks. Of note, he had a 9 mm non-obstructing right kidney stone as well. I will likely recommend right extracorporeal shockwave lithotripsy for treatment of that stone and then likely remove his stent at the same time. SRI
[2016-10-29 10:00] VITALS: BP 149/80
[2016-10-29] MEDS: PERCOCET 5MG/325MG TAB PO PRN (10:35)
--- NOTE | 2016-10-29 12:23 | IPNPDOC ---
Assessment/Plan Date Seen The patient was seen on 10/29/16. Patient Summary 71 y/o M POD1 s/p left PCNL. Labs are w/i normal limits. Patient notes minimal pain. He feels well. Plan/VTE VTE Prophylaxis Ordered?: Yes VTE Exclusion Mechanical Proph: N/A:VTE Prophy Ordered Plan/Urinary Catheter Urinary Catheter: D/C Ivy Plan - stop IVF - d/c Ivy catheter in 1 hour if urine remains pink or clearer - percocet prn pain - SCDs - ambulate - regular diet - plan for discharge home after patient voids Subjective Review oF Systems Chief Complaint The patient is a 71-year-old male admitted with a reason for visit of Nephrolithiasis. Events since Last Encounter No acute events o/n. Patient notes good pain control. He denies n/v. No f/c/ ns. Objective Physical Examination General Exam: Alert, Cooperative, No Acute Distress ENT EXAM: Atraumatic Skin Exam: Nl turgor and temperature Neuro Exam: Normal Speech Psych Exam: Mental status NL, Mood NL Other physical findings left nephrostomy catheter and Ivy catheter both draining clear urine Vital Signs/I&O Vital Signs Date Time Temp Pulse Resp B/P (MAP) Pulse Ox O2 Delivery O2 Flow Rate FiO2 10/29/16 10:35 20 10/29/16 08:51 137/67 10/29/16 06:00 99.0 74 93 10/29/16 02:00 Room Air I&O- Last 24 Hours up to 6 AM 10/29/16 06:00 Intake Total 2235 ml Output Total 1175 ml Balance 1060 ml Laboratory Data Labs 24H Laboratory Tests 2 10/28/16 14:33: 10/28/16 16:16: Anion Gap 9, Glomerular Filtration Rate > 60.0, Blood Urea Nitrogen 16, Creatinine 1.21, Sodium Level 137, Potassium Level 3.7, Chloride Level 102, Carbon Dioxide Level 26, Calcium Level 8.6L 10/29/16 05:48: Anion Gap 6L, Glomerular Filtration Rate > 60.0, Blood Urea Nitrogen 13, Creatinine 1.19, Sodium Level 139, Potassium Level 3.6, Chloride Level 103, Carbon Dioxide Level 30, Calcium Level 8.2L CBC/BMP Laboratory Tests 10/28/16 16:16 Red Blood Count 4.32, Mean Corpuscular Volume 89.1, Mean Corpuscular Hemoglobin 30.4, Mean Corpuscular Hemoglobin Concent 34.1, Red Cell Distribution Width 13.7 , Calcium Level 8.6 L 10/29/16 05:48 Red Blood Count 3.87 L, Mean Corpuscular Volume 89.4, Mean Corpuscular Hemoglobin 30.4, Mean Corpuscular Hemoglobin Concent 34.0, Red Cell Distribution Width 13.7, Calcium Level 8.2 L MICHAEL DODSON MD Oct 29, 2016 12:23
[2016-10-29 14:00] VITALS: BP 141/77
--- NOTE | 2016-10-31 12:11 | DSES ---
DATE OF ADMISSION: 10/28/2016 DATE OF DISCHARGE: 10/29/2016 ADMISSION DIAGNOSIS: Nephrolithiasis. DISCHARGE DIAGNOSIS: Nephrolithiasis. ADMITTING PHYSICIAN: Alex Awan MD. DISCHARGING PHYSICIAN: Alex Awan MD. PROCEDURE PERFORMED: Left percutaneous nephrolithotomy. HISTORY OF PRESENT ILLNESS: This is a 71-year-old male who was found to have a very large staghorn left renal calculus and was admitted to the hospital after undergoing the above-listed procedure for treatment of the stone on 10/28/2016. HOSPITALIZATION COURSE: The patient was admitted to the hospital after undergoing the above-listed procedure. His postoperative course was uncomplicated. On postoperative day #1, he was doing very well. His labs were all within normal limits. He made excellent urine output. His pain was well controlled with oral pain medication and he was tolerating a regular diet. His left nephrostomy catheter was removed on postoperative day #1 and at that point his Ivy catheter was removed as well. He voided without any difficulty. He was deemed ready for discharge home on postoperative day #1. Of note, he also has an approximately 8 or 9 mm nonobstructing right renal stone. He also has a left ureteral stent still in place. He will be seen in the office in approximately 1 week to discuss extracorporeal shockwave lithotripsy on the right-sided stone, as well as removal of his left ureteral stent at the same time. SRI
[2016-11-03] MEDS ORDERED: NITR100C37 PO (09:30)
== END 2016-10-29 17:06 | disposition home or self-care (01) | DRG 661 ==
LOC: M OR 10-28 07:59 → M MSPAV 10-28 17:19
PROVIDERS: ADMIT Urology; ATTEND Urology
PROC: 0TF43ZZ Fragmentation in Left Kidney Pelvis, Percutaneous Approach (ICD-10-PCS; principal; 2016-10-28 10:10)
DX: N20.0 Calculus of kidney (principal); E78.5 Hyperlipidemia, unspecified; Z88.8 Allergy status to other drugs, medicaments and biological substances; Z91.038 Other insect allergy status; Z91.013 Allergy to seafood; Z88.0 Allergy status to penicillin; Z85.46 Personal history of malignant neoplasm of prostate

== ENCOUNTER → 2016-10-27 | Outpatient (CLI) | payer MEDICARE ==
[~2016-10-27] MED LIST changes: +ISOVUE-300 61% 50ML VIAL (Q9967) As Ordered ONE; +LIDOCAINE 2% MDV 20 ML VIAL As Ordered ONE; +MIDAZOLAM INJ 2 MG/2 ML VIAL (J2250) As Ordered ONE; +NITR100C37 PO; +NORCO, ANEXSIA 5/325MG TABLET (HYDROcodone/ACETAMINOPHEN) As Ordered ONE; +NORCO, ANEXSIA 5/325MG TABLET (HYDROcodone/ACETAMINOPHEN) PO PRN; +cefTRIAXone SOD 1 GM VIAL (J0696) As Ordered ONE; +fentaNYL 100 MCG/2 ML INJECTION (J3010) As Ordered ONE
[2016-10-27 17:00] VITALS: BP 163/91
--- NOTE | 2016-10-27 18:14 | REPKIM ---
CLINICAL HISTORY: Patient with a staghorn calculus, hematuria, s/p retrograde double J internal ureteral stent placement on 09/06/16 presents for a nephroureteral catheter placement for preop percutaneous nephrolithotripsy urology procedure on the left. PROCEDURE PERFORMED: 1. Ultrasound left Kidney 2. Percutaneous Antegrade Nephrostogram 3. Attempted Nephroureteral Catheter Placement 4. Percutaneous Nephrostomy Catheter Placement INTERVENTIONALIST: Blake Sky MD CONSENT: The risks, benefits and alternatives to the procedure were explained to the patient and informed written consent was obtained. SEDATION: Sedation and analgesia was provided by the Anesthesiology Dept. CONTRAST: 72 mL Isovue 300 EBL: 20 mL FLUORO TIME: 35.8 minutes DEVICE USED: 8.5F Man Randall Catheter Nephrostomy catheter Lot#[id number] PROCEDURE/FINDINGS: The patient was brought to the interventional radiology suite and placed in the prone position, left flank prepped and draped in the usual sterile fashion. Patient continued his macrobid antibiotics. Time out procedure was performed. Ultrasound of the left kidney showed moderate to markedly dilated calyces associated with a large staghorn calculus. Using ultrasound and fluoroscopy guidance, a 21-gauge Accustick needle was advanced into the targeted lower pole posterior calyx, after infiltration of the skin and deep tissues with local anesthetic. Contrast was injected and images were obtained. This showed no antegrade flow of contrast into the ureter beyond the UPJ. There is no antegrade flow of contrast via the existing double J stent into the urinary bladder. Multiple attempts were made to advance a guidewire around the staghorn calculus into the proximal ureter but wire would curl at the UPJ due to what appears to be complete obstruction at the UPJ/stone. For this reason, decision was then made to leave a nephrostomy urinary diversion tube. An 8.5-[place] Man Randall nephrostomy catheter was introduced over the guidewire. The guidewire was withdrawn and the distal end of the loop curled in the lower pole dilated calyx. The nephrostomy catheter was then flushed and connected to a gravity bag. The patient tolerated the procedure well with no immediate complications. The patient was transferred to the recovery room. This procedure was performed using ultrasound and fluoroscopy. Dr. Sky was present. IMPRESSION: 1. A large staghorn calculus involving the left kidney. Ultrasound demonstrates hydronephrosis. Nephrostogram demonstrates complete obstruction at the UPJ with no antegrade flow of contrast into the ureter/urinary bladder. 2. Successful 8.5F nephrostomy urinary diversion tube placement via the posterior lower pole dilated calyx as discussed above. These findings discussed via phone with Dr. Awan at the completion of this study. This PCN access as well as retrograde access will be used for subsequent nephrolithotripsy urology procedure. cc: Alex Awan MD [facility]
== END | disposition home or self-care (01) ==
LOC: M IRPRO 11:53
PROVIDERS: ATTEND Nurse Practitioner Family
DX: N13.2 Hydronephrosis with renal and ureteral calculous obstruction (principal)

== ENCOUNTER → 2016-11-02 | Outpatient (CLI) | payer MEDICARE ==
[~2016-11-02] MED LIST changes: +CLIN150C14 PO; -CLIN1CAP5 PO; -COLA100C3 PO; +COLA100C5 PO; -ISOVUE-300 61% 50ML VIAL (Q9967) As Ordered ONE; -LIDOCAINE 2% MDV 20 ML VIAL As Ordered ONE; -MIDAZOLAM INJ 2 MG/2 ML VIAL (J2250) As Ordered ONE; -NITR100C37 PO; +NITR100C39 PO; -NORCO, ANEXSIA 5/325MG TABLET (HYDROcodone/ACETAMINOPHEN) As Ordered ONE; -NORCO, ANEXSIA 5/325MG TABLET (HYDROcodone/ACETAMINOPHEN) PO PRN; -cefTRIAXone SOD 1 GM VIAL (J0696) As Ordered ONE; -fentaNYL 100 MCG/2 ML INJECTION (J3010) As Ordered ONE
[2016-11-02 19:18] LABS: MEAN CORPUSCULAR HEMOGLOBIN 30.4 pg (27.0-33.0); MEAN CORPUSCULAR HGB CONC 34.2 g/dl (32.0-36.5); RED CELL DISTRIBUTION WIDTH 13.1 % (11.5-14.5); WHITE BLOOD COUNT 6.3 K/mm3 (4.0-10.0)
[2016-11-02 20:01] LABS: ANION GAP 8 MEQ/L (8-16); BLOOD UREA NITROGEN 15 MG/DL (7-18); CALCIUM LEVEL 9.2 MG/DL (8.8-10.2); CARBON DIOXIDE LEVEL 30 MEQ/L (21-32); CHLORIDE LEVEL 102 MEQ/L (98-107); CREATININE FOR GFR 1.13 MG/DL (0.70-1.30); GLOMERULAR FILTRATION RATE > 60.0 (>42); GLUCOSE, FASTING 95 MG/DL (83-110); POTASSIUM SERUM 4.4 MEQ/L (3.5-5.1); SODIUM LEVEL 140 MEQ/L (136-145)
== END ==
LOC: M SMT 10:52
PROVIDERS: ATTEND Urology
DX: Z01.818 Encounter for other preprocedural examination (principal); N20.0 Calculus of kidney
CPT/HCPCS: 36415; 80048; 85027; 87086; G0463

== ENCOUNTER → 2016-11-10 | Day surgery (SDC) | payer MEDICARE ==
[~2016-11-10] VITALS: Ht 165.1 cm; Wt 99.3 kg
[~2016-11-10] MED LIST changes: +LIDOCAINE 2% INJ 100 MG/5 ML SDV (FOR ANES.) As Ordered ONE; +LR 1,000 ML IV SCH; +MIDAZOLAM INJ 2 MG/2 ML VIAL (J2250) As Ordered ONE; +ONDANSETRON 4MG/2ML VIAL (J2405) IV PRN; +PERCOCET 5MG/325MG TAB PO PRN; +PROPOFOL 200 MG/20 ML VIAL As Ordered ONE; +fentaNYL 100 MCG/2 ML INJECTION (J3010) As Ordered ONE
--- NOTE | 2016-11-10 07:24 | REP ---
Clinical: Nephrolithiasis. Comparison: 10/03/2006. Findings: Left ureteral stent in satisfactory position. Residual calculi in the lower pole of the left kidney identified along with 6 mm right renal calculus. Bowel gas pattern is nonspecific. Skeletal structures are intact. Impression: Left ureteral stent in satisfactory position. Bilateral nephroliths noted. Signed by Vidal Smith MD 11/10/2016 07:15 A
[2016-11-10] MEDS: LR 1,000 ML IV SCH (08:00)
[2016-11-10] MEDS: VANCOMYCIN HCL 1,000 MG, VIAL MATE ADAPTER 1 EACH in D5W 250 ML IV ONE (08:05)
[2016-11-10] MEDS: GENTAMICIN 80 MG in APPROPRIATE DILUENT 1 EA IV ONE (08:27)
[2016-11-10 11:00] VITALS: BP 166/93
--- NOTE | 2016-11-10 13:27 | RO ---
DATE OF PROCEDURE: 11/10/2016 PREPROCEDURE DIAGNOSIS: Bilateral kidney stones. POSTPROCEDURE DIAGNOSIS: Bilateral kidney stones. PROCEDURE: Bilateral extracorporeal shockwave lithotripsy, cystoscopy and removal of left ureteral stent. SURGEON: Dr. Alex Awan YACHT HAND: None. ANESTHESIA: Monitored anesthesia care (MAC). OPERATIVE INDICATIONS: This is a 71-year-old male with bilateral kidney stones, who recently underwent a left percutaneous nephrolithotomy. On repeat abdominal x-ray, he had a 6 mm right kidney stone, as well as what appeared to be a 4 to 5 mm proximal left ureteral stone along with stent. It was recommended that he be brought to the operating room for the above listed procedure. DESCRIPTION OF PROCEDURE: The patient was brought to the operating room and MAC anesthesia was administered. Prophylactic antibiotics were infused. He was then placed in supine position for left sided extracorporeal shockwave lithotripsy first. Fluoroscopy was utilized to monitor stone position and fragmentation. Shockwaves were then delivered to the left ureteral stone ungated. There were no arrhythmias. The stone did appear to fragment well. After 3000 shocks the procedure on the left side was concluded. The patient was then repositioned for a right sided extracorporeal shockwave lithotripsy. Once again, fluoroscopy was utilized to monitor stone position and fragmentation. Shockwaves were then delivered to the right kidney stone ungated. There were no arrhythmias. The stone did appear to fragment well. After 2500 shocks the extracorporeal shock wave lithotripsy was concluded. At this point, the patient was then prepped and draped in the usual sterile fashion for preparation for cystoscopy. A flexible cystoscope was utilized to go into the bladder. Once inside the bladder, the left ureteral stent was seen. The stent was then grasped and withdrawn from the left ureter completely intact. Once this was done, this marked conclusion of the procedure. The patient was then awakened from anesthesia and transported to the recovery room in stable condition. ESTIMATED BLOOD LOSS: 0 mL. COMPLICATIONS: None. SPECIMENS: None. PLAN: The patient will followup in the clinic in a few weeks with imaging prior to assess for residual stone burden. Also, at that point, we will get a followup PSA on him given his history of prostate cancer. SRI
== END | disposition home or self-care (01) ==
LOC: M SDC 07:19
PROVIDERS: ATTEND Urology
DX: N20.0 Calculus of kidney (principal); C61 Malignant neoplasm of prostate; I10 Essential (primary) hypertension; E78.5 Hyperlipidemia, unspecified; M12.9 Arthropathy, unspecified; Z88.0 Allergy status to penicillin; Z88.1 Allergy status to other antibiotic agents; Z88.8 Allergy status to other drugs, medicaments and biological substances; Z91.013 Allergy to seafood; Z91.030 Bee allergy status; Z79.899 Other long term (current) drug therapy
CPT/HCPCS: 50590; 52310; 74000; J1580; J2250; J3010; J3370

== ENCOUNTER → 2016-12-06 | Outpatient (CLI) | payer MEDICARE ==
[~2016-12-06] MED LIST changes: -LIDOCAINE 2% INJ 100 MG/5 ML SDV (FOR ANES.) As Ordered ONE; -LR 1,000 ML IV SCH; -MIDAZOLAM INJ 2 MG/2 ML VIAL (J2250) As Ordered ONE; -ONDANSETRON 4MG/2ML VIAL (J2405) IV PRN; -PERCOCET 5MG/325MG TAB PO PRN; -PROPOFOL 200 MG/20 ML VIAL As Ordered ONE; -fentaNYL 100 MCG/2 ML INJECTION (J3010) As Ordered ONE
--- NOTE | 2016-12-06 09:56 | REP ---
KUB: HISTORY: Nephrolithiasis. COMPARISON: 11/10/2016 The patient is status post left ureteral stent removal. There is no definite nephrolithiasis. The intestinal gas pattern is nonspecific. Degenerative change is present in the lumbar spine. IMPRESSION: The patient is status post left ureteral stent removal. Signed by Gadiel Agee MD 12/06/2016 10:00 A
== END ==
LOC: M SMT 09:16
PROVIDERS: ATTEND Urology
DX: N20.0 Calculus of kidney (principal)

== ENCOUNTER → 2016-12-09 | Outpatient (REF) | payer MEDICARE ==
[2016-12-09 17:56] LABS: INR 0.94
== END ==
LOC: M SFHCCLAY 12:05
PROVIDERS: ATTEND Family Medicine
DX: R91.8 Other nonspecific abnormal finding of lung field (principal)

== ENCOUNTER 2016-12-20 06:51 | Inpatient (IN) | payer MEDICARE ==
[~2016-12-20] VITALS: Ht 172.7 cm; Wt 101.3 kg
[2016-12-20] VITALS (11 sets, daily range): BP systolic 135–156; BP diastolic 66–88
[2016-12-20] MEDS: DOCUSATE SODIUM 100 MG CAP PO SCH ×2 (09:00→20:21)
[2016-12-20] MEDS: MOM 30ML SUSPENSION UDC PO SCH (09:00)
[2016-12-20] MEDS: PANTOPRAZOLE 40MG INJ (PROTONIX) (C9113) IV SCH (09:00)
[2016-12-20] MEDS ORDERED: LIDOCAINE 1% MDV 20ML VIAL As Ordered ONE ×2 (09:02→13:42)
--- NOTE | 2016-12-20 10:20 | REP ---
Post biopsy chest: PA expiratory view of the chest was performed following right lung biopsy. There is a small right apical pneumothorax with an air gap of 2.4 cm. Nodular opacities are seen in the lungs. IMPRESSION: Small right apical pneumothorax status post right lung biopsy. Signed by Vitor Berumen MD 12/20/2016 05:08 P
[2016-12-20] MEDS ORDERED: BISACODYL 10 MG SUPP PR PRN (13:30)
[2016-12-20] MEDS ORDERED: ACETAMINOPHEN TAB 650MG DOSE (2X325MG) PO PRN (13:30)
[2016-12-20] MEDS ORDERED: ONDANSETRON 4MG/2ML VIAL (J2405) IV PRN (13:30)
[2016-12-20] MEDS ORDERED: PERCOCET 5MG/325MG TAB PO PRN (13:30)
[2016-12-20] MEDS ORDERED: LEVALBUTEROL 1.25 MG/0.5 ML CONCENTRATE NEB NEB PRN (13:30)
[2016-12-20] MEDS ORDERED: NORCO, ANEXSIA 5/325MG TABLET (HYDROcodone/ACETAMINOPHEN) PO PRN (13:30)
[2016-12-20] MEDS ORDERED: MIDAZOLAM INJ 2 MG/2 ML VIAL (J2250) As Ordered ONE ×4 (13:41→13:53)
[2016-12-20] MEDS ORDERED: KCL 20MEQ IN D5/NS 1000ML 1,000 ML IV SCH (14:00)
[2016-12-20] MEDS: KETOROLAC 30 MG/ML VIAL (J1885) IV SCH ×2 (14:18→20:30)
[2016-12-20] MEDS: LEVALBUTEROL 1.25 MG/0.5 ML CONCENTRATE NEB NEB SCH ×2 (14:28→19:46)
[2016-12-20 14:36] LABS: BASO % 0.8 % (0.0-1.0); EOS # 0.1 K/mm3 (0.0-0.50); EOS % 2.3 % (0.0-3.0); LARGE UNSTAINED CELL # 0.2 K/mm3 (0.0-0.4); LARGE UNSTAINED CELL % 3.2 % (0.0-4.0); LYMPH # 1.9 K/mm3 (1.5-4.5); LYMPH % 32.7 % (24.0-44.0); MEAN CORPUSCULAR HEMOGLOBIN 30.2 pg (27.0-33.0); MEAN CORPUSCULAR VOLUME 86.3 fl (80.0-96.0); MONO # 0.5 K/mm3 (0.0-0.8); MONO % 8.9 % (0.0-5.0); NEUTROPHILS # 2.8 K/mm3 (1.8-7.7); NEUTROPHILS % 52.1 % (36.0-66.0); PLATELET COUNT, AUTOMATED 178 k/mm3 (150-450); RED CELL DISTRIBUTION WIDTH 13.7 % (11.5-14.5); WHITE BLOOD COUNT 5.3 K/mm3 (4.0-10.0)
[2016-12-20 15:25] LABS: ANION GAP 6 MEQ/L (8-16); BLOOD UREA NITROGEN 17 MG/DL (7-18); CALCIUM LEVEL 8.5 MG/DL (8.8-10.2); CARBON DIOXIDE LEVEL 27 MEQ/L (21-32); CHLORIDE LEVEL 108 MEQ/L (98-107); CREATININE FOR GFR 1.21 MG/DL (0.70-1.30); GLOMERULAR FILTRATION RATE > 60.0 (>42); GLUCOSE, FASTING 94 MG/DL (83-110); POTASSIUM SERUM 3.7 MEQ/L (3.5-5.1); SODIUM LEVEL 141 MEQ/L (136-145)
--- NOTE | 2016-12-20 16:04 | REP ---
CHEST: Post-biopsy image of the chest is performed at 12 p.m. and compared to prior exam of the same day. The right apical pneumothorax had increased in size since the prior study. Prior air gap was 2.4 cm at the apex, it is now 5.5 cm. IMPRESSION: Mild increased size of right pneumothorax. Signed by Vitor Berumen MD 12/20/2016 05:10 P
--- NOTE | 2016-12-20 16:47 | HPE ---
DATE OF ADMISSION: 12/20/2016 Patient was seen at the request of Dr. Berumen of Radiology for a pneumothorax after a lung biopsy on the right side. HISTORY OF THE PRESENT ILLNESS: The patient is a 71-year-old white male who has a prior history of prostate cancer and has known multiple lung masses. In September of 2016, he underwent removal of a staghorn calculus by Dr. Sky of Interventional Radiology with a stent. It has left him with continued chronic flank pain and testicular pain for which he takes Percocet. Prior to this, he did not complain of any shortness of breath, cough, sputum production or hemoptysis. In fact, had he not had a CT scan, he would not have known that there was anything going on with his lungs. There has been no weight loss. No fevers, chills, sweats or no night sweats. There has been no dysphagia. Today, in the radiology outpatient department, he is fairly comfortable, but his pneumothorax has now increased to approximately 50% over the last 2 hours. PAST MEDICAL HISTORY: Prior treated prostate cancer with increasing prostate-specific antigens (PSAs). Hypertension. Hyperlipidemia. History of renal stones. Statin intolerance. MEDICATIONS AT HOME: - Percocet 5/325 every 4 hours as needed for pain - losartan 50 mg daily - Flomax 0.5 mg daily PAST SURGICAL HISTORY: Ureteral stent placement. TRAVEL HISTORY: He has traveled to the [facility] and to the [facility] but not to the [facility]. 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 He does not know of any asbestos exposure. EXPOSURES: No dogs, cats or birds at home. FAMILY HISTORY: Father is secondary to alcoholic cirrhosis. Mother is also . HABITS: He is a nonsmoker. Smoked for a little while in his early 20s and quit soon thereafter. Consumes Ethyl alcohol (ETOH) only occasionally. No recreational drug use. REVIEW OF SYSTEMS: EYES: Without diplopia, without transient monocular blindness, without prior jaundice. NOSE: Without epistaxis. MOUTH: Has his own teeth. RESPIRATORY: See history of the present illness. CARDIAC: See history of the present illness. No history of myocardial infarctions. No orthopnea or paroxysmal nocturnal dyspnea. Has always slept with the head of his bed elevated at about one inch with a small board under the head of the bed for comfort reasons. No paroxysmal nocturnal dyspnea. No swelling of his extremities. GASTROINTESTINAL: Without nausea, vomiting, diarrhea, constipation, melena, hematochezia, dysphagia. GENITOURINARY: See history of the present illness. No hematuria at the present time. NEUROLOGIC: Without paresthesias, paralyses or prior seizures. ENDOCRINE: Without diabetes, without thyroid disease. LYMPHATICS: Without lumps and bumps in the neck, axilla or groin that he has noted. HEMATOLOGIC: Without prolonged bleeding times. PSYCHIATRIC: Without pathologic psychoses, depressions or anxieties. INVESTIGATIONS: CBC and chemistries are pending. His chest x-ray shows now a 40-50% pneumothorax on the right side. Costophrenic angles are sharp. There is no subcutaneous emphysema and there is no mediastinal shift. His chest CT done 09/23/2016 shows numerous round cannonball pulmonary nodules, too numerous to count, the largest of which is in the right upper lobe. They have basically smooth, rounded contours and do not look spiculated. In essence, they look like metastatic lesions. Liver is without lesions and his adrenals are intact. He has hydronephrosis of the left kidney. There are no emphysematous changes. I do not see mediastinal lymphadenopathy. There is no pericardial effusion. IMPRESSION: 1. Acute pneumothorax, status post lung biopsy. 2. Multiple pulmonary lesions, probably metastatic in nature. 3. Known prostatic carcinoma. 4. Hyperlipidemia with complete statin intolerance. 5. Hypertension, well controlled. PLAN AND DISCUSSION: I will place a chest tube in order to inflate his lung. Hopefully he will not have a continuous air leak, and we will be able to remove the chest tube in the next day or so. I will not be available tomorrow morning or afternoon. Dr. Rico will see the patient in the morning and manage his chest tube. Will maintain him on all of his medications. Hopefully we will have the results of his biopsies prior to him being discharged. I have gone over with Mr. Caraballo his chest CT. He was not aware of the diagnostic implications of all of his masses and I have had to explain that to him.
--- NOTE | 2016-12-20 17:25 | REP ---
Portable chest x-ray: Sitting AP view. History: Status post chest tube placement. Comparison chest x-ray is from 12 noon on this same date. Findings: A right chest tube has been inserted and the previously noted post biopsy right sided pneumothorax is largely resolved. There are some hazy opacities in the right mid lung zone. Left lung is clear. Heart is not enlarged. Impression: Status post right chest tube placement for evacuation of a right-sided pneumothorax. Signed by Kris Myers MD 12/21/2016 07:56 A
--- NOTE | 2016-12-20 17:38 | REP ---
CT GUIDED RIGHT LUNG BIOPSY: Procedure was performed by GANESH Tobar under the direct supervision of Dr. Berumen. The procedure along with its risks, benefits, and complications were discussed with the patient prior to the procedure. Informed consent was obtained both verbally and written. The patient was identified in the CT suite and placed in a supine position on the table. Using CT imaging we were able to identify a viable biopsy site. Appropriate site was chosen for needle entry and this area was marked, prepped and draped in the usual sterile fashion. A procedural "time out" was performed to ensure that the correct patient, site, and procedure were being performed. Local infiltrative anesthesia was achieved with 1% Xylocaine. A 19-gauge Temno biopsy device was advance through the chest wall and into the lung to the edge of the mass. Four core biopsy specimens were obtained. These will be sent off to the lab for further evaluation. Results pending. Post procedural imaging revealed a small pneumothorax. Patient will stay for 2 hours of monitored observation. During the monitor observation, the pneumothorax increased and a consultation with Dr. Houser was made. The patient was admitted to the floor and into Dr. Houser's care for a chest tube. Reviewed by GANESH Will 12/21/2016 08:04 AEdited and Signed by Vitor Berumen MD 12/21/2016 05:01 P
[2016-12-20] MEDS ORDERED: MIDAZOLAM INJ 2 MG/2 ML VIAL (J2250) IV ONE (17:45)
[2016-12-20] MEDS ORDERED: LIDOCAINE 1% MDV 20ML VIAL SC ONE (17:45)
[2016-12-20] MEDS: HEPARIN SOD (PORCINE) 5000 UNITS/ML VIAL SC SCH (20:21)
[2016-12-20] MEDS: PERCOCET 5MG/325MG TAB PO PRN (20:24)
[2016-12-21] VITALS: BP 138/55
[2016-12-21] MEDS: LEVALBUTEROL 1.25 MG/0.5 ML CONCENTRATE NEB NEB SCH ×4 (01:07→19:19)
[2016-12-21] MEDS: KETOROLAC 30 MG/ML VIAL (J1885) IV SCH ×4 (02:00→19:46)
[2016-12-21 03:27] VITALS: BP 139/65
[2016-12-21 05:35] LABS: BASO % 0.3 % (0.0-1.0); EOS # 0.1 K/mm3 (0.0-0.50); EOS % 0.8 % (0.0-3.0); LARGE UNSTAINED CELL # 0.2 K/mm3 (0.0-0.4); LYMPH % 23.5 % (24.0-44.0); MEAN CORPUSCULAR HEMOGLOBIN 29.7 pg (27.0-33.0); MEAN CORPUSCULAR HGB CONC 33.7 g/dl (32.0-36.5); MEAN CORPUSCULAR VOLUME 87.9 fl (80.0-96.0); MONO # 0.6 K/mm3 (0.0-0.8); MONO % 7.3 % (0.0-5.0); NEUTROPHILS # 5.1 K/mm3 (1.8-7.7); NEUTROPHILS % 66.1 % (36.0-66.0); PLATELET COUNT, AUTOMATED 166 k/mm3 (150-450); RED CELL DISTRIBUTION WIDTH 13.7 % (11.5-14.5); WHITE BLOOD COUNT 7.8 K/mm3 (4.0-10.0)
[2016-12-21 05:47] LABS: ANION GAP 6 MEQ/L (8-16); BLOOD UREA NITROGEN 21 MG/DL (7-18); CALCIUM LEVEL 8.5 MG/DL (8.8-10.2); CARBON DIOXIDE LEVEL 30 MEQ/L (21-32); CHLORIDE LEVEL 105 MEQ/L (98-107); CREATININE FOR GFR 1.24 MG/DL (0.70-1.30); GLOMERULAR FILTRATION RATE > 60.0 (>42); GLUCOSE, FASTING 112 MG/DL (83-110); POTASSIUM SERUM 4.9 MEQ/L (3.5-5.1); SODIUM LEVEL 141 MEQ/L (136-145)
[2016-12-21 08:00] VITALS: BP 148/70
[2016-12-21] MEDS: PANTOPRAZOLE 40MG TAB (PROTONIX) PO SCH ×2 (08:02→08:13)
[2016-12-21] MEDS: DOCUSATE SODIUM 100 MG CAP PO SCH ×2 (08:11→19:46)
[2016-12-21] MEDS: HEPARIN SOD (PORCINE) 5000 UNITS/ML VIAL SC SCH ×2 (08:12→19:46)
[2016-12-21] MEDS: PANTOPRAZOLE 40MG INJ (PROTONIX) (C9113) IV SCH (08:12)
[2016-12-21] MEDS: MOM 30ML SUSPENSION UDC PO SCH (08:12)
--- NOTE | 2016-12-21 10:08 | REP ---
CHEST, TWO VIEWS: Two views of the chest are performed. There is a right chest tube in place. There is a tiny right apical pneumothorax. Subcutaneous emphysema is seen in the right chest wall. There are nodular opacities in the lungs. The cardiomediastinal silhouette is unchanged. IMPRESSION: Right chest tube in place. Tiny right apical pneumothorax. Signed by Vitor Berumen MD 12/21/2016 05:09 P
--- NOTE | 2016-12-21 10:09 | IPNPDOC ---
Subjective Date Seen The patient was seen on 12/21/16. Subjective Chief Complaint/HPI The patient is a 71-year-old male admitted with a reason for visit of Pneumothoraz After Biopsy. Events since last encounter denies c/o. Dr. Houser advised at least 1 more day with chest tube. Constitutional: Denies: Chills, Fever, Night Sweats ENT: Denies: Head Aches, Ear Pain, Dysphagia Pulmonary: Denies: Dyspnea, Cough Cardiovascular: Denies: Chest Pain, Palpitations, Orthopnea, Paroxysmal Noc. Dyspnea, Lt Headedness Genitourinary: Denies: Dysuria, Frequency, Incontinence, Retention Psych: Reports: Mood Normal, Denies: Depression, Memory Issues Objective Physical Examination General Exam: Positive: Alert, No Acute Distress Neck Exam: Positive: Supple, Negative: JVD, thyromegaly Chest Exam: Positive: Clear to auscultation, Normal air movement Heart Exam: Positive: Rate Normal, Regular Rhythm, Normal S1, Normal S2, Negative: Murmurs, Rubs Abdomen Exam: Positive: Normal bowel sounds, Soft, Negative: Tenderness, Hepatospenomegaly Extremity Exam: Positive: Normal pulses, Negative: Clubbing, Cyanosis, Edema Skin Exam: Positive: Nl turgor and temperature, Negative: Rash, Breakdown Psych Exam: Positive: Mental status NL, Mood NL, Oriented x 3 Assessment /Plan Problems (1) Pneumothorax after biopsy Status: Acute Problem Specific Plan: Consult Specialist Problem Text: 12/21/16: Path confirms prostate met. Patient informed. Dr. Houser following (2) HTN (hypertension) Status: Chronic Response to Treatment: Stable (3) Prostate cancer Status: Chronic Response to Treatment: Stable Problem Specific Plan: Monitor Clinically Problem Text: Home dose tamsulosin ordered. Plan/VTE VTE Prophylaxis Ordered?: Yes (heparin ) VS, I&O, 24H, Fishbone Vital Signs/I&O Vital Signs Date Time Temp Pulse Resp B/P (MAP) Pulse Ox O2 Delivery O2 Flow Rate FiO2 12/21/16 04:00 Room Air 12/21/16 03:27 98.6 68 18 139/65 (89) 98 12/20/16 14:49 2.0 I&O- Last 24 Hours up to 6 AM 12/21/16 05:59 Intake Total 1020 ml Output Total 400 ml Balance 620 ml Laboratory Data 24H LABS Laboratory Tests 2 12/20/16 14:05: White Blood Count 5.3, Red Blood Count 4.75, Hemoglobin 14.4, Hematocrit 41.0L, Mean Corpuscular Volume 86.3, Mean Corpuscular Hemoglobin 30.2, Mean Corpuscular Hemoglobin Concent 35.0, Red Cell Distribution Width 13.7, Platelet Count 178, Neutrophils (%) (Auto) 52.1, Lymphocytes (%) (Auto) 32.7, Monocytes ( %) (Auto) 8.9H, Eosinophils (%) (Auto) 2.3, Basophils (%) (Auto) 0.8, Neutrophils # (Auto) 2.8, Lymphocytes # (Auto) 1.9, Monocytes # (Auto) 0.5, Eosinophils # (Auto) 0.1, Basophils # (Auto) 0.0, Large Unclassified Cells % 3.2 , Large Unclassified Cells # 0.2, Anion Gap 6L, Glomerular Filtration Rate > 60.0, Blood Urea Nitrogen 17, Creatinine 1.21, Sodium Level 141, Potassium Level 3.7, Chloride Level 108H, Carbon Dioxide Level 27, Calcium Level 8.5L 12/21/16 05:02: White Blood Count 7.8, Red Blood Count 4.38, Hemoglobin 13.0L, Hematocrit 38.6L , Mean Corpuscular Volume 87.9, Mean Corpuscular Hemoglobin 29.7, Mean Corpuscular Hemoglobin Concent 33.7, Red Cell Distribution Width 13.7, Platelet Count 166, Neutrophils (%) (Auto) 66.1H, Lymphocytes (%) (Auto) 23.5L, Monocytes (%) (Auto) 7.3H, Eosinophils (%) (Auto) 0.8, Basophils (%) (Auto) 0.3 , Neutrophils # (Auto) 5.1, Lymphocytes # (Auto) 2.0, Monocytes # (Auto) 0.6, Eosinophils # (Auto) 0.1, Basophils # (Auto) 0.0, Large Unclassified Cells % 2.0 , Large Unclassified Cells # 0.2, Anion Gap 6L, Glomerular Filtration Rate > 60.0, Blood Urea Nitrogen 21H, Creatinine 1.24, Sodium Level 141, Potassium Level 4.9#, Chloride Level 105, Carbon Dioxide Level 30, Calcium Level 8.5L CBC/BMP Laboratory Tests 12/20/16 14:05 Red Blood Count 4.75, Mean Corpuscular Volume 86.3, Mean Corpuscular Hemoglobin 30.2, Mean Corpuscular Hemoglobin Concent 35.0, Red Cell Distribution Width 13.7 , Neutrophils (%) (Auto) 52.1, Lymphocytes (%) (Auto) 32.7, Monocytes (%) (Auto ) 8.9 H, Eosinophils (%) (Auto) 2.3, Basophils (%) (Auto) 0.8, Neutrophils # ( Auto) 2.8, Lymphocytes # (Auto) 1.9, Monocytes # (Auto) 0.5, Eosinophils # (Auto ) 0.1, Basophils # (Auto) 0.0, Calcium Level 8.5 L 12/21/16 05:02 Red Blood Count 4.38, Mean Corpuscular Volume 87.9, Mean Corpuscular Hemoglobin 29.7, Mean Corpuscular Hemoglobin Concent 33.7, Red Cell Distribution Width 13.7 , Neutrophils (%) (Auto) 66.1 H, Lymphocytes (%) (Auto) 23.5 L, Monocytes (%) ( Auto) 7.3 H, Eosinophils (%) (Auto) 0.8, Basophils (%) (Auto) 0.3, Neutrophils # (Auto) 5.1, Lymphocytes # (Auto) 2.0, Monocytes # (Auto) 0.6, Eosinophils # ( Auto) 0.1, Basophils # (Auto) 0.0, Calcium Level 8.5 L Nerissa Reddy Dec 21, 2016 10:09 Nicholas Jenkins MD Dec 21, 2016 13:49
[2016-12-21 12:00] VITALS: BP 150/67
[2016-12-21] MEDS: LOSARTAN 50 MG TAB PO SCH (14:10)
[2016-12-21] MEDS: TAMSULOSIN 0.4 MG CAP PO SCH (14:10)
[2016-12-21 16:00] VITALS: BP 159/72
[2016-12-21] MEDS: PERCOCET 5MG/325MG TAB PO PRN (16:27)
--- NOTE | 2016-12-21 19:00 | IPN ---
DATE: 12/21/2016 Mr. Caraballo no longer has an air leak and his lung is fully expanded to the chest wall by chest x-ray. I therefore have taken off suction. His pain is being well controlled at the chest tube insertion site. VITAL SIGNS: Show a T-max of 98.7 with a heart rate that ranges between 68 and 55 in a sinus rhythm and respiratory rate of 18 to 22 without the use of accessory muscles who is 98% saturated on room air and whose blood pressure is ranging between 129/65 to 156/79. His intake and output over the past 24 hours has been recorded as 820 in and 250 out for a positivity of 570 mL. He has put nothing out of the chest tube and there is no air leak. He weighs 100.1 kg today compared to 98.2 kg yesterday. PHYSICAL EXAMINATION: His lungs show normal vesicular sounds on either side. Breath sounds are equal on either side. Percussion note is full to the diaphragm. Cardiac exam is without murmurs, clicks, gallops or rubs. I cannot feel his point of maximal impulse (PMI). S1 and S2 are normal. Abdomen is soft and nontender. Bowel sounds are positive. There is no hepatomegaly. No costovertebral angle (CVA) tenderness. Extremities show no pretibial edema. No calf tenderness. No differential swelling of the upper extremities. Skin is warm, dry and perfused without cyanosis or mottling including that of the nail beds and the knees. Neck is supple. There is no jugular venous distention. No subcutaneous emphysema. Trachea is midline. Mouth shows his mucous membranes to be pink and moist. Lips and commissures without lesions. No thrush. Eyes show his pupils to be equal, reactive. Extraocular muscles intact. Sclera anicteric. Neuro shows II through XII intact. Gross motor and gross sensation intact. Gait is not tested. Psychiatric shows him to be awake, alert and oriented times three with appropriate mood, affect and conversational. His white count today is 7.8 with hemoglobin and hematocrit of 13.0 and 38.6 and a platelet count of 166, and stable. Differential shows 66% neutrophils, 23% lymphocytes, 7% monocytes. There are no immature forms or toxic granulations. His electrolytes are normal with a BUN and creatinine of 21 and 1.24, a glucose of 112, and a calcium of 8.5. His chest x-ray shows his lung fully expanded to the chest wall. There is subcutaneous emphysema along the lateral chest wall. There are no infiltrates. Costophrenic angles are sharp. Lateral chest x-ray shows no posterior infiltrates. The chest tube is located in the upper lung field, but not at the apex and posterior. I see no residual pneumothorax. IMPRESSION: 1. Acute pneumothorax, status post lung biopsy. 2. Multiple pulmonary lesions, probably metastatic in nature. 3. Known prostatic carcinoma. 4. Hyperlipidemia with complete statin intolerance. 5. Hypertension, well controlled. PLAN AND DISCUSSION: I will take his chest tube off suction today. Will ambulate him and continue chest tube expansion therapy. If his lung is still up tomorrow, I will remove his chest tube and 6 hours later repeat a chest x-ray and send him home tomorrow.
[2016-12-21 19:50] VITALS: BP 158/72
[2016-12-22] VITALS: BP 180/82
[2016-12-22] MEDS: DOCUSATE SODIUM 100 MG CAP PO SCH ×2 (00:10→09:00)
[2016-12-22] MEDS: MOM 30ML SUSPENSION UDC PO SCH (00:11)
[2016-12-22] MEDS: KETOROLAC 30 MG/ML VIAL (J1885) IV SCH ×3 (01:27→14:00)
[2016-12-22 01:31] VITALS: BP 171/80
[2016-12-22] MEDS: LEVALBUTEROL 1.25 MG/0.5 ML CONCENTRATE NEB NEB SCH ×3 (01:46→13:49)
[2016-12-22 04:10] VITALS: BP 145/72
[2016-12-22 05:15] LABS: BASO % 0.2 % (0.0-1.0); EOS # 0.2 K/mm3 (0.0-0.50); EOS % 2.1 % (0.0-3.0); LARGE UNSTAINED CELL # 0.1 K/mm3 (0.0-0.4); LARGE UNSTAINED CELL % 1.6 % (0.0-4.0); LYMPH # 1.8 K/mm3 (1.5-4.5); LYMPH % 23.4 % (24.0-44.0); MEAN CORPUSCULAR HEMOGLOBIN 30.2 pg (27.0-33.0); MEAN CORPUSCULAR HGB CONC 34.8 g/dl (32.0-36.5); MONO # 0.3 K/mm3 (0.0-0.8); MONO % 4.4 % (0.0-5.0); NEUTROPHILS % 68.4 % (36.0-66.0); PLATELET COUNT, AUTOMATED 154 k/mm3 (150-450); RED CELL DISTRIBUTION WIDTH 13.8 % (11.5-14.5); WHITE BLOOD COUNT 7.3 K/mm3 (4.0-10.0)
[2016-12-22 05:36] LABS: ANION GAP 9 MEQ/L (8-16); BLOOD UREA NITROGEN 18 MG/DL (7-18); CALCIUM LEVEL 8.7 MG/DL (8.8-10.2); CARBON DIOXIDE LEVEL 28 MEQ/L (21-32); CHLORIDE LEVEL 105 MEQ/L (98-107); CREATININE FOR GFR 1.22 MG/DL (0.70-1.30); GLOMERULAR FILTRATION RATE > 60.0 (>42); GLUCOSE, FASTING 115 MG/DL (83-110); POTASSIUM SERUM 4.2 MEQ/L (3.5-5.1); SODIUM LEVEL 142 MEQ/L (136-145)
[2016-12-22 08:00] VITALS: BP 157/72
[2016-12-22] MEDS: HEPARIN SOD (PORCINE) 5000 UNITS/ML VIAL SC SCH (09:00)
[2016-12-22] MEDS: PANTOPRAZOLE 40MG INJ (PROTONIX) (C9113) IV SCH (09:00)
[2016-12-22] MEDS: PANTOPRAZOLE 40MG TAB (PROTONIX) PO SCH (09:41)
[2016-12-22] MEDS: TAMSULOSIN 0.4 MG CAP PO SCH (09:42)
[2016-12-22 09:45] VITALS: BP 157/72
[2016-12-22] MEDS: LOSARTAN 50 MG TAB PO SCH (09:45)
[2016-12-22 12:00] VITALS: BP 156/57
--- NOTE | 2016-12-22 13:17 | REP ---
PA and lateral chest: Comparison is 12/21/2016. The right thoracotomy tube is unchanged. The previous tiny right pneumothorax has resolved. The subcutaneous emphysema along the right lateral chest wall is unchanged. I suspect there are nodular densities in the right lung that are partially obscured by the subcutaneous emphysema. Left lung is clear. Cardiac size is normal. Signed by Vitor Andre MD 12/22/2016 08:07 A
--- NOTE | 2016-12-22 13:20 | RO ---
DATE OF PROCEDURE: 12/20/2016 PREPROCEDURE DIAGNOSIS: Acute pneumothorax right side. POSTPROCEDURE DIAGNOSIS: Acute pneumothorax right side. PROCEDURE: Insertion of right anterior chest tube. SURGEON: Dr. William Houser CHANNEL SUPERVISOR: ANESTHESIA: ESTIMATED BLOOD LOSS: Under satisfactory moderate sedation achieved with 4 mg of Versed, patient was prepped and draped in usual sterile fashion. Incision was made of the second rib and a tunnel was created in the first intercostal space. A #20 chest tube was placed without difficulty. It was secured to the chest wall with #2 Tevdek suture. It was connected to the Pleur-evac. Patient tolerated the procedure well and a chest x-ray is pending. Moderate sedation and monitoring 20 minutes. MTDD
--- NOTE | 2016-12-22 15:51 | REP ---
CHEST: Two views of the chest are performed and compared to prior study earlier today. Right chest tube has been removed. There is a tiny right apical pneumothorax. There is again chest wall emphysematous change. Lung musa appear unchanged. IMPRESSION: Removal of right chest tube. Tiny right apical pneumothorax. Signed by Vitor Berumen MD 12/22/2016 05:06 P
--- NOTE | 2016-12-24 10:12 | IPN ---
DATE: 12/22/2016 Mr. Caraballo was breathing well today. His chest tube has been off suction and there is no air leak. His pain is being well controlled at the chest tube insertion site. His vital signs show a T-max of 98.9 with a heart rate that ranges between 81 and 80 and is sinus rhythm, respiratory rate of 16-22 without the use of accessory muscles and who is 96% saturated on room air, and whose blood pressure is ranging between 171/80 to 145/72. His intake and output the past 24 hours has been recorded as 2700 in and 2389 out for a positivity of 311 mL. He has put 4 mL out the chest tube and there is no air leak. His weight today is 96 kg compared to 100.1 kg yesterday. PHYSICAL EXAMINATION: LUNGS: He has normal vesicular sounds with equal breath sounds on either side. CARDIAC: Without murmurs, clicks, gallops or rubs. I cannot feel his point of maximal impulse (PMI). S1 and S2 are normal. ABDOMEN: Soft and nontender. Bowel sounds are positive. There is no hepatomegaly. No costovertebral angle (CVA) tenderness. EXTREMITIES: Show no pretibial edema. No calf tenderness. No differential swelling of the upper extremities. SKIN: Warm, dry and perfused without cyanosis or mottling including that of the nail beds and the knees. NECK: Supple. There is no jugular venous distention. No subcutaneous emphysema. Trachea is midline. MOUTH: Shows his mucous membranes to be pink and moist. Lips and commissures are without lesions. There is no thrush. EYES: Show his pupils to be equal, reactive. Extraocular motors are intact. Sclera nonicteric. NEURO: Shows II through XII intact, along with gross motor and gross sensation intact. Gait is not tested. PSYCHIATRIC: Shows him to be awake and alert, oriented times three with appropriate mood, affect and conversational. His white count today is 7.3 with a hemoglobin and hematocrit of 13.0 and 37.3, unchanged from yesterday, with a platelet count of 154 and stable. Differential shows 68% neutrophils, 23% lymphocytes, 4% monocytes. There are no immature forms. No toxic granulations. His chemistries show normal electrolytes with a BUN and creatinine of 18 and 1.22, glucose of 115 and a calcium of 8.7. His chest x-ray shows an increase in his subcutaneous emphysema. I do not see a line consistent with a pneumothorax. Costophrenic angles are sharp. Chest tube is posterior and in the midchest rather than at the apex. His biopsy was done on a midchest lesion. IMPRESSION: 1. Right sided pneumothorax, status post lung biopsy. 2. Metastatic prostatic CA to the lung. 3. Known prior prostate carcinoma. 4. Hyperlipidemia with complete statin intolerance. 5. Hypertension, well controlled. PLAN AND DISCUSSION: I have informed Mr. Caraballo of his pathology. He already has a referral to medical oncology and I have given the number to call. I will remove his chest tube and take a chest x-ray in 6 hours. If the lung remains up and I will discharge him later today. He will come back to see me in one week with a chest x-ray in post hospitalization followup.
--- NOTE | 2017-01-12 06:09 | DSES ---
DATE OF ADMISSION: 12/20/2016 DATE OF DISCHARGE: 12/22/2016 The progress note of 12/22/2016 is incorporated by reference. DISCHARGE DIAGNOSES: 1. Right sided pneumothorax, status post lung biopsy. 2. Metastatic prostatic carcinoma to the lung. 3. Known prior prostate carcinoma. 4. Hyperlipidemia with complete statin intolerance. 5. Hypertension, well controlled. HOSPITAL COURSE: The patient is a 71-year-old, white male who underwent a surveillance CT and was found to have multiple numerous round lantigua ball pulmonary nodules. He underwent a lung biopsy and suffered a pneumothorax on the right side. A chest tube had been placed and it was resolved. Tissue from the lung biopsy showed three metastatic prostatic carcinoma. The chest tube was removed on the day of discharge and a chest x-ray was taken six hours later which showed the lung fully expanded to the chest wall. He is being discharged today on losartan 50 mg daily, Percocet 5/325 every 4 hours as needed pain and tamsulosin (Flomax) 0.4 mg daily. He will return to see me in one week in followup at the office with a chest x-ray.
== END 2016-12-22 16:57 | disposition home or self-care (01) | DRG 200 ==
LOC: M RADPRO 06:51 → M ICU 13:30
PROVIDERS: ADMIT Ophthalmology; ATTEND Family Medicine
PROC: 0W9930Z Drainage of Right Pleural Cavity with Drainage Device, Percutaneous Approach (ICD-10-PCS; principal; 2016-12-20)
PROC: 0BB Respiratory System, Excision (ICD-10-PCS; 2016-12-20)
DX: J95.811 Postprocedural pneumothorax (principal); N13.30 Unspecified hydronephrosis; C78.01 Secondary malignant neoplasm of right lung; E78.5 Hyperlipidemia, unspecified; I10 Essential (primary) hypertension; Z85.46 Personal history of malignant neoplasm of prostate; Z87.442 Personal history of urinary calculi; Z79.899 Other long term (current) drug therapy; Z87.891 Personal history of nicotine dependence

== ENCOUNTER → 2016-12-23 | Outpatient (CLI) | payer MEDICARE ==
--- NOTE | 2016-12-23 10:31 | REP ---
TWO VIEW CHEST: Two views of the chest are performed and compared to prior study of 12/22/2016. There is again a very small right apical pneumothorax which is stable. There are some underlying parenchymal opacities on the right which are stable. There is air in the right chest wall which is unchanged. The left lung is unchanged as is the cardiomediastinal silhouette. IMPRESSION: Stable exam. Signed by Vitor Berumen MD 12/23/2016 04:41 P
== END ==
LOC: M SMT 09:52
PROVIDERS: ATTEND Thoracic Surgery (Cardiothoracic Vascular Surgery)
DX: J95.811 Postprocedural pneumothorax (principal)

== ENCOUNTER → 2016-12-27 | Outpatient (REF) | payer MEDICARE | LOC: M LAB REF 14:34 | PROVIDERS: ATTEND Internal Medicine Medical Oncology | DX: C61 Malignant neoplasm of prostate (principal) ==

== ENCOUNTER → 2016-12-29 | Outpatient (CLI) | payer MEDICARE ==
--- NOTE | 2016-12-29 14:45 | REP ---
WHOLE BODY BONE SCAN: Following the intravenous administration of 21.6 mCi of technetium-99m MDP, patient's whole body is imaged in the anterior and posterior projections with additional oblique images of the thoracic and pelvic regions performed as well lateral views of the calvarium, knees, and feet. There is focal increased uptake in the left posterior T8 and T11 vertebral bodies. Focal increased uptake is seen in the right inferior pubic ramus. These are suspicious for metastatic lesions. There is no other compelling scintigraphic evidence of osseous metastases. There is left hydronephrosis noted. IMPRESSION: Focal increased uptake in the posterior left eight and eleventh vertebral bodies, with small focus of increased uptake in the right inferior pubic ramus. These foci are suspicious for metastatic lesions. Signed by Vitor Berumen MD 12/29/2016 03:18 P
== END ==
LOC: M RAD 10:18
PROVIDERS: ATTEND Internal Medicine Medical Oncology
DX: C61 Malignant neoplasm of prostate (principal)
CPT/HCPCS: 78306; A9503

== ENCOUNTER → 2017-01-17 | Outpatient (REF) | payer MEDICARE | LOC: M LAB REF 08:20 | PROVIDERS: ATTEND Internal Medicine Medical Oncology | DX: C61 Malignant neoplasm of prostate (principal) ==

== ENCOUNTER → 2017-02-09 | Outpatient (CLI) | payer MEDICARE ==
[2017-02-09 10:10] LABS: BASO # 0.1 10^3/uL (0.0-0.2); BASO % 1.4 % (0.0-1.0); EOS # 0.2 10^3/uL (0.0-0.50); EOS % 2.9 % (0.0-3.0); IMMATURE GRANULOCYTE % 0.2 % (0-0); LYMPH # 1.9 10^3/uL (1.5-4.5); LYMPH % 32.4 % (24.0-44.0); MEAN CORPUSCULAR HEMOGLOBIN 28.7 pg (27.0-33.0); MEAN CORPUSCULAR HGB CONC 33.1 g/dl (32.0-36.5); MEAN CORPUSCULAR VOLUME 86.8 fl (80.0-96.0); MONO # 0.6 10^3/uL (0.0-0.8); MONO % 9.5 % (0.0-5.0); NEUTROPHILS # 3.1 10^3/uL (1.8-7.7); NEUTROPHILS % 53.6 % (36.0-66.0); PLATELET COUNT, AUTOMATED 178 10^3/uL (150-450); RED CELL DISTRIBUTION WIDTH 13.8 % (11.5-14.5); WHITE BLOOD COUNT 5.8 10^3/uL (4.0-10.0)
[2017-02-09 10:26] LABS: ALBUMIN/GLOBULIN RATIO 1.03 (1.00-1.93); ALKALINE PHOSPHATASE 96 U/L (45-117); ALT/SGPT 27 U/L (12-78); ANION GAP 11 MEQ/L (8-16); AST/SGOT 18 U/L (15-37); BILIRUBIN,TOTAL 0.5 MG/DL (0.2-1.0); BLOOD UREA NITROGEN 23 MG/DL (7-18); CALCIUM LEVEL 9.1 MG/DL (8.8-10.2); CARBON DIOXIDE LEVEL 28 MEQ/L (21-32); CHLORIDE LEVEL 99 MEQ/L (98-107); CREATININE FOR GFR 1.14 MG/DL (0.70-1.30); GLOMERULAR FILTRATION RATE > 60.0 (>42); GLUCOSE, FASTING 90 MG/DL (83-110); POTASSIUM SERUM 3.9 MEQ/L (3.5-5.1); SODIUM LEVEL 138 MEQ/L (136-145); TOTAL PROTEIN 7.9 GM/DL (6.4-8.2)
== END ==
LOC: M LAB 08:55
PROVIDERS: ATTEND Internal Medicine Medical Oncology
DX: C61 Malignant neoplasm of prostate (principal)

== ENCOUNTER → 2017-04-10 | Outpatient (CLI) | payer MEDICARE ==
[2017-04-10 10:20] LABS: BASO % 0.5 % (0.0-1.0); EOS # 0.2 10^3/uL (0.0-0.50); EOS % 3.5 % (0.0-3.0); IMMATURE GRANULOCYTE % 0.2 % (0-0); LYMPH # 2.5 10^3/uL (1.5-4.5); LYMPH % 41.5 % (24.0-44.0); MEAN CORPUSCULAR HEMOGLOBIN 29.5 pg (27.0-33.0); MEAN CORPUSCULAR HGB CONC 34.5 g/dl (32.0-36.5); MEAN CORPUSCULAR VOLUME 85.5 fl (80.0-96.0); MONO # 0.5 10^3/uL (0.0-0.8); MONO % 8.4 % (0.0-5.0); NEUTROPHILS # 2.7 10^3/uL (1.8-7.7); NEUTROPHILS % 45.9 % (36.0-66.0); PLATELET COUNT, AUTOMATED 195 10^3/uL (150-450); RED CELL DISTRIBUTION WIDTH 14.1 % (11.5-14.5); WHITE BLOOD COUNT 5.9 10^3/uL (4.0-10.0)
[2017-04-10 11:24] LABS: ANION GAP 10 MEQ/L (8-16); BLOOD UREA NITROGEN 19 MG/DL (7-18); CALCIUM LEVEL 9.5 MG/DL (8.8-10.2); CARBON DIOXIDE LEVEL 30 MEQ/L (21-32); CHLORIDE LEVEL 98 MEQ/L (98-107); CREATININE FOR GFR 1.25 MG/DL (0.70-1.30); GLOMERULAR FILTRATION RATE > 60.0 (>42); GLUCOSE, FASTING 120 MG/DL (83-110); POTASSIUM SERUM 3.6 MEQ/L (3.5-5.1); SODIUM LEVEL 138 MEQ/L (136-145)
== END ==
LOC: M LAB 09:31
PROVIDERS: ATTEND Internal Medicine Medical Oncology
DX: C61 Malignant neoplasm of prostate (principal)

== ENCOUNTER → 2017-05-11 | Outpatient (REF) | payer MEDICARE ==
[2017-05-11 14:30] LABS: PROSTATIC SPECIFIC AG MONITOR 0.26 NG/ML (< 4.0)
== END ==
LOC: M LAB REF 13:42
DX: C61 Malignant neoplasm of prostate (principal)
CPT/HCPCS: 84153

== ENCOUNTER → 2017-06-08 | Outpatient (CLI) | payer MEDICARE ==
[2017-06-08 10:49] LABS: ANION GAP 6 MEQ/L (8-16); BLOOD UREA NITROGEN 15 MG/DL (7-18); CALCIUM LEVEL 9.2 MG/DL (8.8-10.2); CARBON DIOXIDE LEVEL 30 MEQ/L (21-32); CHLORIDE LEVEL 102 MEQ/L (98-107); CREATININE FOR GFR 1.12 MG/DL (0.70-1.30); GLOMERULAR FILTRATION RATE > 60.0 (>42); GLUCOSE, FASTING 118 MG/DL (70-100); POTASSIUM SERUM 3.7 MEQ/L (3.5-5.1); SODIUM LEVEL 138 MEQ/L (136-145)
== END ==
LOC: M LAB 09:39
DX: C61 Malignant neoplasm of prostate (principal)
CPT/HCPCS: 80048

== ENCOUNTER → 2017-07-06 | Outpatient (CLI) | payer MEDICARE ==
[2017-07-06 07:04] LABS: ANION GAP 7 MEQ/L (8-16); BLOOD UREA NITROGEN 20 MG/DL (7-18); CARBON DIOXIDE LEVEL 32 MEQ/L (21-32); CHLORIDE LEVEL 97 MEQ/L (98-107); CREATININE FOR GFR 1.55 MG/DL (0.70-1.30); GLOMERULAR FILTRATION RATE 47.2 (>42); GLUCOSE, FASTING 131 MG/DL (70-100); POTASSIUM SERUM 3.2 MEQ/L (3.5-5.1); SODIUM LEVEL 136 MEQ/L (136-145)
== END ==
LOC: M LAB 06:14
DX: C61 Malignant neoplasm of prostate (principal)
CPT/HCPCS: 80048

== ENCOUNTER → 2017-08-04 | Outpatient (CLI) | payer MEDICARE ==
[2017-08-04 07:16] LABS: ANION GAP 9 MEQ/L (8-16); BLOOD UREA NITROGEN 22 MG/DL (7-18); CALCIUM LEVEL 9.2 MG/DL (8.8-10.2); CARBON DIOXIDE LEVEL 30 MEQ/L (21-32); CHLORIDE LEVEL 101 MEQ/L (98-107); CREATININE FOR GFR 1.22 MG/DL (0.70-1.30); GLOMERULAR FILTRATION RATE > 60.0 (>42); GLUCOSE, FASTING 121 MG/DL (70-100); POTASSIUM SERUM 3.4 MEQ/L (3.5-5.1); SODIUM LEVEL 140 MEQ/L (136-145)
[2017-08-04 07:17] LABS: ALBUMIN 4.1 GM/DL (3.2-5.2); ALBUMIN/GLOBULIN RATIO 1.08 (1.00-1.93); ALKALINE PHOSPHATASE 52 U/L (45-117); ALT/SGPT 46 U/L (12-78); AST/SGOT 28 U/L (7-37); BILIRUBIN,TOTAL 0.4 MG/DL (0.2-1.0); TOTAL PROTEIN 7.9 GM/DL (6.4-8.2)
== END ==
LOC: M LAB 06:08
DX: C61 Malignant neoplasm of prostate (principal)
CPT/HCPCS: 80053

== ENCOUNTER → 2017-08-29 | Outpatient (CLI) | payer MEDICARE ==
[2017-08-29 08:25] LABS: HEMATOCRIT 42.3 % (42.0-52.0); HEMOGLOBIN 14.6 g/dl (13.5-17.5); MEAN CORPUSCULAR HEMOGLOBIN 29.9 pg (27.0-33.0); MEAN CORPUSCULAR HGB CONC 34.5 g/dl (32.0-36.5); MEAN CORPUSCULAR VOLUME 86.5 fl (80.0-96.0); PLATELET COUNT, AUTOMATED 172 10^3/uL (150-450); RED BLOOD COUNT 4.89 10^6/uL (4.30-6.10); RED CELL DISTRIBUTION WIDTH 13.1 % (11.5-14.5); WHITE BLOOD COUNT 6.4 10^3/uL (4.0-10.0)
[2017-08-29 09:12] LABS: ANION GAP 7 MEQ/L (8-16); BLOOD UREA NITROGEN 17 MG/DL (7-18); CALCIUM LEVEL 9.3 MG/DL (8.8-10.2); CARBON DIOXIDE LEVEL 31 MEQ/L (21-32); CHLORIDE LEVEL 101 MEQ/L (98-107); CREATININE FOR GFR 1.25 MG/DL (0.70-1.30); GLOMERULAR FILTRATION RATE > 60.0 (>42); GLUCOSE, FASTING 180 MG/DL (70-100); POTASSIUM SERUM 3.7 MEQ/L (3.5-5.1); PROSTATIC SPECIFIC AG MONITOR 0.33 NG/ML (< 4.0); SODIUM LEVEL 139 MEQ/L (136-145)
== END ==
LOC: M LAB 07:35
DX: C61 Malignant neoplasm of prostate (principal)
CPT/HCPCS: 84153

== ENCOUNTER → 2018-01-11 | Outpatient (CLI) | payer MEDICARE ==
[~2018-01-11] MED LIST changes: -ASPI1TAB PO; -ASPI81TA85 PO; -CLIN150C14 PO; -COLA100C5 PO; -FLOM5CAP PO; -LOSA50TA20; -LOSA50TA20 PO; -NITR100C39 PO; -OXYC1TAB23; -OXYC1TAB23 PO; +PROHANCE 279.3MG/ML 15ML VIAL (A9576) As Ordered; +PROHANCE 279.3MG/ML 5ML VIAL (A9576) As Ordered
== END ==
LOC: M RAD 12:45
DX: C61 Malignant neoplasm of prostate (principal); M54.89 Other dorsalgia; R53.1 Weakness; C79.51 Secondary malignant neoplasm of bone
CPT/HCPCS: A9576

== ENCOUNTER → 2018-01-24 | Outpatient (REF) | payer MEDICARE ==
[2018-01-24 14:32] LABS: PROSTATIC SPECIFIC AG MONITOR 0.51 NG/ML (< 4.0)
== END ==
LOC: M LAB REF 13:23
DX: C61 Malignant neoplasm of prostate (principal); C78.00 Secondary malignant neoplasm of unspecified lung
CPT/HCPCS: 84153

== ENCOUNTER → 2018-08-13 | Outpatient (CLI) | payer MEDICARE ==
[~2018-08-13] MED LIST changes: +ASPI81TA26 PO; +ASPI81TA85 PO; +CHLO25TA PO; +CLIN150C14 PO; +COLA100C5 PO; +FLOM0.4C39 PO; +ISOVUE-370 76% 100ML VIAL (Q9967) As Ordered ONE; +LOSA50TA88; +LOSA50TA88 PO; +NITR100C39 PO; +OXYC1TAB23; +OXYC1TAB23 PO; +POTA8TAB8 PO; -PROHANCE 279.3MG/ML 15ML VIAL (A9576) As Ordered; -PROHANCE 279.3MG/ML 5ML VIAL (A9576) As Ordered
--- NOTE | 2018-08-13 16:13 | REP ---
CT of the chest with IV contrast: Comparison is 12/14/2017. The patient has known multiple lung nodules measuring up to 2.6 cm in diameter . These nodules have not changed in number or size. There is no mediastinal, hilar lymph node enlargement, as previously. There are no infiltrates or pleural effusions, as previously. Skeletal metastases in the T8 and T11 vertebral bodies are again identified. No new skeletal lesions are identified. Upper abdomen: There are no adrenal masses. Is homogeneous. Renal cortical cysts are again identified. Impression: Multiple lung nodules, not significantly changed in size or number. Skeletal metastases, unchanged. No adenopathy. No infiltrate or pleural effusion. No significant interval change. Electronically Signed by Vitor Andre MD 08/13/2018 04:04 P
== END ==
LOC: M RAD 15:13
PROVIDERS: ATTEND Nurse Practitioner Family
DX: C61 Malignant neoplasm of prostate (principal); R91.8 Other nonspecific abnormal finding of lung field
CPT/HCPCS: 71260; Q9967

== ENCOUNTER → 2019-03-08 | Outpatient (CLI) | payer MEDICARE ==
--- NOTE | 2019-03-08 09:54 | REP ---
Clinical: Prostate cancer with metastatic disease. Technique: Axial contrast enhanced images from the thoracic inlet to the upper abdomen with coronal and sagittal re-formations using 100 ml Isovue 370 intravenous contrast material. Findings: Innumerable bilateral pulmonary metastatic lesions are again identified and appear slightly increased from prior examination. As example, the largest lesion identified within the right middle lobe measures 2.9 cm maximal diameter and previously measured 2.6 cm maximal diameter (image 43). Smaller scattered lesions also appear more solid in nature and slightly increased in size. No pleural effusion. No pneumothorax. Tracheobronchial tree is patent. Subcentimeter lymph nodes are nonspecific. Atherosclerotic changes to the thoracic aorta and coronary arteries noted without aortic aneurysm or dissection. No cardiomegaly. No pericardial effusion. Osseous metastases are also increased in the T7, T8 and T11 vertebral bodies as compared to prior examination. Limited upper abdomen demonstrates diffuse fatty infiltration to the liver along with suspected mild stable left hydronephrosis. Impression: 1. Pulmonary metastases appear slightly increased from prior examination. 2. Osseous metastases have increased in size in the T7, T8, and T11 vertebral bodies. Electronically Signed by Vidal Smith MD 03/08/2019 09:45 A
--- NOTE | 2019-03-08 14:40 | REP ---
WHOLE BODY BONE SCAN: Following the intravenous administration of 22 mCi of technetium-99m MDP, patient's whole body is imaged in the anterior and posterior projections with additional oblique images obtained. Comparison 12/29/2016. There is increased uptake in the maxilla and mandible compatible with history of recent dental manipulation. There is a focus of increased uptake in the T7, T8, and T11 vertebral bodies and probably a subtle focus of increased uptake in the left T10 vertebral body, all suspicious for metastatic lesions. There is focal increased uptake on the right at the L3 level which may also represent a metastatic lesion. There is a small focus of increased uptake in the left sacrum and another in the right inferior pubic ramus also suspicious for metastatic lesions. The T8 and T11 lesions were present on the prior bone scan, but have increased in size. Similarly the focus of increased uptake in the right inferior pubic ramus was present on the prior study, but has increased in size. There is also increased uptake in the left 12th rib compatible with a metastatic lesion. IMPRESSION: Skeletal metastases as discussed above, with progression since prior study of 12/29/2016. Electronically Signed by Vitor Berumen MD 03/08/2019 03:47 P
== END ==
LOC: M RAD 08:53
PROVIDERS: ATTEND Internal Medicine Hematology & Oncology
DX: C61 Malignant neoplasm of prostate (principal); I70.0 Atherosclerosis of aorta; C78.01 Secondary malignant neoplasm of right lung; C79.51 Secondary malignant neoplasm of bone; K76.0 Fatty (change of) liver, not elsewhere classified
CPT/HCPCS: 71260; 78306; A9503; Q9967

== ENCOUNTER → 2019-04-16 | Outpatient (CLI) | payer MEDICARE ==
[~2019-04-16] MED LIST changes: +AMOX500T2 PO; -ISOVUE-370 76% 100ML VIAL (Q9967) As Ordered ONE; +OXYC1TAB15 PO; +XTAN40CA PO
--- NOTE | 2019-04-16 13:53 | REP ---
LEFT RIB SERIES: Five views including PA chest. HISTORY: Tenderness left 8th rib. There is a history of prostate malignancy. Comparison chest CT study is from March 08, 2019. There is a history of pulmonary and skeletal metastatic disease. PA chest radiograph demonstrates two nodular opacities in the right perihilar region, the largest of which measures 3 cm in greatest diameter consistent with the metastatic pulmonary nodules appreciated on recent CT. There is mild pleural thickening bilaterally. The heart is not enlarged. There is no evidence of pneumothorax or hydrothorax. Multiple views of the left rib cage demonstrate no evidence of lytic or sclerotic metastatic bony lesion. No rib fracture is appreciated on these views. IMPRESSION: No rib lesion is identified. There are perihilar nodules in the right lung consistent with metastases seen on recent CT study. Electronically Signed by Kris Myers MD 04/16/2019 05:18 P
== END ==
LOC: M RAD 09:59
PROVIDERS: ATTEND Surgery Vascular Surgery
DX: R07.81 Pleurodynia (principal); C61 Malignant neoplasm of prostate; R91.8 Other nonspecific abnormal finding of lung field

== ENCOUNTER → 2019-09-04 | Outpatient (REF) | payer MEDICARE ==
[~2019-09-04] MED LIST changes: +CASO50TA5 PO; +FIRM120I5 SC
[2019-09-04 17:33] LABS: ALBUMIN 3.7 GM/DL (3.2-5.2); BILIRUBIN,TOTAL 0.6 MG/DL (0.2-1.0); CALCIUM LEVEL 9.5 MG/DL (8.8-10.2); CREATININE FOR GFR 1.28 MG/DL (0.70-1.30); GLOMERULAR FILTRATION RATE 58.3 (>42); PROSTATIC SPECIFIC AG MONITOR 4.36 NG/ML (< 4.00); TOTAL PROTEIN 8.1 GM/DL (6.4-8.2)
== END ==
LOC: M LABDRAWC 16:20
PROVIDERS: ATTEND Internal Medicine Hematology
DX: C61 Malignant neoplasm of prostate (principal)

== ENCOUNTER → 2019-10-01 | Outpatient (CLI) | payer MEDICARE ==
[2019-10-01 12:43] LABS: BASO # 0.1 10^3/uL (0.0-0.2); BASO % 0.7 % (0.0-1.0); EOS # 0.2 10^3/uL (0.0-0.5); EOS % 2.7 % (0.0-3.0); HEMATOCRIT 41.2 % (42.0-52.0); HEMOGLOBIN 13.9 g/dl (13.5-17.5); LYMPH # 2.9 10^3/uL (1.5-5.0); LYMPH % 42.6 % (24.0-44.0); MEAN CORPUSCULAR HEMOGLOBIN 30.8 pg (27.0-33.0); MEAN CORPUSCULAR HGB CONC 33.7 g/dl (32.0-36.5); MEAN CORPUSCULAR VOLUME 91.4 fl (80.0-96.0); MONO # 0.5 10^3/uL (0.0-0.8); MONO % 7.3 % (0.0-5.0); NEUTROPHILS # 3.1 10^3/uL (1.5-8.5); NEUTROPHILS % 46.4 % (36.0-66.0); PLATELET COUNT, AUTOMATED 161 10^3/uL (150-450); RED BLOOD COUNT 4.51 10^6/uL (4.30-6.10); WHITE BLOOD COUNT 6.7 10^3/uL (4.0-10.0)
[2019-10-01 12:54] LABS: ALBUMIN 3.5 GM/DL (3.2-5.2); BILIRUBIN,TOTAL 0.7 MG/DL (0.2-1.0); CALCIUM LEVEL 9.8 MG/DL (8.8-10.2); CREATININE FOR GFR 1.34 MG/DL (0.70-1.30); GLOMERULAR FILTRATION RATE 55.3 (>42); PROSTATIC SPECIFIC AG MONITOR 5.29 NG/ML (< 4.00); TOTAL PROTEIN 7.5 GM/DL (6.4-8.2)
== END ==
LOC: M WUC 09:22
PROVIDERS: ATTEND Internal Medicine Hematology
DX: C61 Malignant neoplasm of prostate (principal)

== ENCOUNTER → 2019-11-26 | Outpatient (CLI) | payer MEDICARE ==
[~2019-11-26] MED LIST changes: -ASPI81TA85 PO; +ASPI81TA86 PO; +BICA50TA9 PO
[2019-11-26 13:00] LABS: ALBUMIN 3.5 GM/DL (3.2-5.2); BILIRUBIN,TOTAL 0.7 MG/DL (0.2-1.0); CALCIUM LEVEL 9.4 MG/DL (8.8-10.2); CREATININE FOR GFR 1.36 MG/DL (0.70-1.30); GLOMERULAR FILTRATION RATE 54.4 (>42); POTASSIUM SERUM 3.8 MEQ/L (3.5-5.1); PROSTATIC SPECIFIC AG MONITOR 7.1 NG/ML (< 4.00); TOTAL PROTEIN 7.7 GM/DL (6.4-8.2)
[2019-11-26 13:01] LABS: BASO % 0.6 % (0.0-1.0); EOS # 0.2 10^3/uL (0.0-0.5); EOS % 3.5 % (0.0-3.0); HEMATOCRIT 41.9 % (42.0-52.0); HEMOGLOBIN 14.1 g/dl (13.5-17.5); LYMPH # 2.7 10^3/uL (1.5-5.0); LYMPH % 43.3 % (24.0-44.0); MEAN CORPUSCULAR HEMOGLOBIN 30.8 pg (27.0-33.0); MEAN CORPUSCULAR HGB CONC 33.7 g/dl (32.0-36.5); MEAN CORPUSCULAR VOLUME 91.5 fl (80.0-96.0); MONO # 0.4 10^3/uL (0.0-0.8); MONO % 6.8 % (0.0-5.0); NEUTROPHILS # 2.9 10^3/uL (1.5-8.5); NEUTROPHILS % 45.5 % (36.0-66.0); PLATELET COUNT, AUTOMATED 145 10^3/uL (150-450); RED BLOOD COUNT 4.58 10^6/uL (4.30-6.10); WHITE BLOOD COUNT 6.3 10^3/uL (4.0-10.0)
== END ==
LOC: M WUC 09:13
PROVIDERS: ATTEND Internal Medicine Hematology
DX: C61 Malignant neoplasm of prostate (principal)

== ENCOUNTER → 2020-06-12 | Outpatient (REF) | payer MEDICARE ==
[~2020-06-12] MED LIST changes: -CLIN150C14 PO; +CLIN150C15 PO; +FIRM80IN5 SC
[2020-06-12 11:27] LABS: CALCIUM LEVEL 9.6 MG/DL (8.8-10.2); CREATININE FOR GFR 1.39 MG/DL (0.70-1.30); POTASSIUM SERUM 3.5 MEQ/L (3.5-5.1)
== END ==
LOC: M LAB REF 10:46
PROVIDERS: ATTEND Family Medicine
DX: I11.9 Hypertensive heart disease without heart failure (principal)

== ENCOUNTER → 2020-09-04 | Outpatient (REF) | payer MEDICARE ==
[2020-09-04 13:25] LABS: HEMOGLOBIN A1c 8.4 %
== END ==
LOC: M SFHCCLAY 11:34
PROVIDERS: ATTEND Family Medicine
DX: E11.9 Type 2 diabetes mellitus without complications (principal)

== ENCOUNTER → 2020-12-25 | Outpatient (REF) | payer MEDICARE ==
[~2020-12-25] MED LIST changes: -CLIN150C15 PO; +CLIN150C17 PO; -OXYC1TAB15 PO; +OXYC7.5T3 PO
[2020-12-25 14:49] LABS: HEMOGLOBIN A1c 7.3 %
== END ==
LOC: M SFHCCLAY 12:53
PROVIDERS: ATTEND Family Medicine
DX: E11.9 Type 2 diabetes mellitus without complications (principal)

== ENCOUNTER 2021-01-30 03:40 | Emergency (ER) | payer MEDICARE ==
[~2021-01-30] VITALS: Ht 177.8 cm; Wt 81.8 kg
[2021-01-30] MEDS ORDERED: NS 1,000 ML IV ONE (04:25)
[2021-01-30] MEDS ORDERED: METHOCARBAMOL 1,000 MG/10 ML VIAL (J2800) IV ONE (04:25)
[2021-01-30] MEDS ORDERED: LIDOCAINE 5% (LIDODERM) PATCH TD ONE (04:35)
--- NOTE | 2021-01-30 05:54 | REPVR ---
PROCEDURE INFORMATION: Exam: CT Lumbar Spine Without Contrast Exam date and time: 01/30/2021 4:50 AM Age: 75 years old Clinical indication: Other: Back pain- PT states mets in back TECHNIQUE: Imaging protocol: Computed tomography images of the lumbar spine without contrast. Radiation optimization: All CT scans at this facility use at least one of these dose optimization techniques: automated exposure control; mA and/or kV adjustment per patient size (includes targeted exams where dose is matched to clinical indication); or iterative reconstruction. COMPARISON: [facility] Bone Scan Whole Body 03/08/2019 11:02 AM FINDINGS: Vertebrae: There is diffuse, heterogeneous sclerosis of the spine, visualized pelvic bones, and ribs, consistent with diffuse sclerotic osseous metastases. This appears more widespread than on the bone scan from March,. Vertebral body heights are normal. There is a mild leftward convex curvature centered at L3-L4. There are bilateral pars defects at L5. There is a grade 1 anterolisthesis of L5 on S1. Discs/Spinal canal/Neural foramina: Endplate degenerative changes and disc space narrowing are seen throughout the lumbar spine. Degenerative disc disease at L2-L3 results in severe narrowing of the disc and a partially calcified posterior protruding disc, resulting in severe stenosis of the spinal canal. Disc osteophyte complexes at L3-L4 and L4-L5 result in mild to moderate spinal canal stenosis. There is bony encroachment upon the bilateral neural foramina from L3-L4 through L5-S1. Other bones/joints: See Vertebrae findings. Kidneys and ureters: There is mild hydronephrosis at the left kidney with a transition to a normal sized ureter at the UPJ. No obstructing stone identified. Vasculature: Atherosclerotic changes are present in the abdominal aorta and the iliac arteries. Soft tissues: The paraspinous soft tissues appear unremarkable. IMPRESSION: 1. Diffuse sclerotic osseous metastases, more widespread than on the bone scan from 2018. 2. Pars defects bilaterally at L5 with a grade 1 anterolisthesis of L5 on S1. 3. Advanced multilevel degenerative disc disease, with spinal canal stenosis most advanced at the L2-L3 level. Electronically signed by: Jing Sky On 01/30/2021 05:53:41 AM
[2021-01-30] MEDS ORDERED: METH-1165 PO (06:09)
[2021-01-30] MEDS ORDERED: MORPHINE 4 MG/ML 1ML VIAL/SYRINGE (J2270) As Ordered ONE (06:44)
[2021-01-30] MEDS: MORPHINE 4 MG/ML 1ML VIAL/SYRINGE (J2270) IV PRN ×2 (06:50→07:59)
[2021-01-30 09:46] VITALS: BP 156/81
[2021-01-30] MEDS ORDERED: **NOTE PATIENT COMMENT** MISC XX ONE (16:34)
== END 2021-01-30 10:02 | disposition home or self-care (01) ==
LOC: M ED 03:40
DX: G89.29 Other chronic pain (principal); M54.9 Dorsalgia, unspecified; C61 Malignant neoplasm of prostate; C79.51 Secondary malignant neoplasm of bone; Z92.21 Personal history of antineoplastic chemotherapy; I10 Essential (primary) hypertension; Z79.899 Other long term (current) drug therapy; Z91.013 Allergy to seafood; Z91.030 Bee allergy status; Z88.0 Allergy status to penicillin; Z88.8 Allergy status to other drugs, medicaments and biological substances; Z88.1 Allergy status to other antibiotic agents
CPT/HCPCS: 72131; 93041; 94760; 96361; 96375; 96376; 99285; J2270; J2800